=== PATIENT | male | born 1980 | race Hispanic/Latino ===

== ENCOUNTER 2019-09-06 14:17 | Observation (INO) | payer OTHER, SELFPAY ==
[~2019-09-06 14:17] MED LIST: Iopamidol-370 76% 500 ML 1 ML ONE
[2019-09-06] MEDS ORDERED: Ondansetron PF 4 MG/2 ML Vial ONE (15:49)
[2019-09-06] MEDS ORDERED: Morphine 2 MG/ML SYRINGE ONE (15:49)
[2019-09-06 16:06] LABS: Hemoglobin 11.6 g/dL (14.0-18.0); Mean Corpuscular Hemoglobin 29.9 pg (27.0-31.0); Mean Corpuscular Volume 90.1 fL (78.0-98.0); Red Blood Cell (RBC) Count 3.89 mill/uL (4.70-6.10); White Blood Cell (WBC) Count 2.7 thou/uL (4.8-10.8)
[2019-09-06 16:07] LABS: #Lymphocytes 0.2 thou/uL (1.20-3.40); #Monocytes 0.3 thou/uL (0.11-0.59); #Neutrophils 2.2 thou/uL (1.40-6.50); %Basophils 0.5 % (0.0-1.0); %Eosinophils 0.1 % (0.0-10.0); %Lymphocytes 6.5 % (21.0-51.0); %Neutrophils 82.9 % (42.0-75.0); Mean Corpuscular HGB CONC 33.1 g/dL (32.0-36.0); Mean Platelet Volume 7.6 fL (7.4-10.4); Platelet Count 42 thou/uL (130-400); RBC Distribution Width 13.9 % (11.5-14.5)
[2019-09-06 16:20] LABS: ALT (SGPT) 70 U/L (8-55); AST (SGOT) 107 U/L (5-34); Albumin 3.8 g/dL (3.5-5.0); Alkaline Phosphatase 214 U/L (40-110); Anion Gap 10 mmol/L (10-20); BUN (Urea Nitrogen) 12 mg/dL (8.9-20.6); Bilirubin, Total 3.8 mg/dL (0.2-1.2); Calc. Creatinine Clearance 0 mL/min (70-130); Calcium 9.2 mg/dL (7.8-10.44); Carbon Dioxide 30 mmol/L (22-29); Chloride 101 mmol/L (98-107); Estimated GFR-MDRD Greater than 90; Globulin 5.3 g/dL (2.4-3.5); Glucose 133 mg/dL (70-105); Lipase 17 U/L (8-78); Protein, Total 9.1 g/dL (6.0-8.3); Sodium 137 mmol/L (136-145)
--- NOTE | 2019-09-06 16:20 | CT ---
CT BRAIN WITHOUT CONTRAST: HISTORY: Altered mental status FINDINGS: No evidence of acute infarct, hemorrhage, midline shift or abnormal extra-axial fluid collections is seen. The ventricular size is appropriate and the basilar cisterns are patent. The bony calvarium is intact. The visualized paranasal sinuses and mastoid air cells are well aerated. IMPRESSION: No CT evidence of acute intracranial process.
--- NOTE | 2019-09-06 16:33 | CT ---
CT OF THE ABDOMEN AND PELVIS WITH IV CONTRAST INDICATION: Abdominal pain; vomiting with altered mental status COMPARISON: CT the abdomen and pelvis with contrast dated April 24, 2015 FINDINGS: ABDOMEN: Lung bases: There is a small right pleural effusion with right basilar atelectasis. There are small h iatal hernia. Liver: Cirrhotic morphology of the liver. Gallbladder: Cholelithiasis Pancreas: Normal. Adrenal glands: Normal. Spleen: Enlarged measuring 20 cm in its greatest craniocaudad dimension. Kidneys and ureters: Normal. No hydronephrosis. Vasculature: There is prominent splenic varicosities. Lymph nodes:No lymphadenopathy. Free fluid in abdomen:Mild free fluid is seen within the lower pericolonic gutters. There is mild mundo sarca. PELVIS: Small and large bowel: Unopacified large and small bowel are of normal caliber. Appendix:Normal within the right mid abdomen. Bladder: Normal. Rectal and perirectal soft tissues:Normal. Reproductive structures: Normal. Free fluid in pelvis: No free fluid is evident. Lymphadenopathy pelvis: No lymphadenopathy is evident. Osseous structures: No acute osseous abnormality. No destructive osteolytic or osteoblastic lesion i s identified. There is scattered degenerative and osteoarthritic changes. Soft tissues:Mild anasarca IMPRESSION: 1. Findings of cirrhosis with portal hypertension. 2. Small right pleural effusion with right basilar atelectasis. 3. Cholelithiasis 4. Mild free fluid in the pelvis and lower abdomen. Mild anasarca.
[2019-09-06 17:50] LABS: Bilirubin Negative (Negative); Blood, Urine Negative (Negative); Clarity Clear (Clear); Glucose, Urine (Dipstick) Normal (Negative); Leukocyte 75 Leu/uL (Negative); Nitrite 2+ (Negative); Protein, Urine (Dipstick) 10 mg/dL (Neg-Trace); RBC/HPF 0-3 HPF (0-3); Squamous Epithelial 0-3 HPF (0-3); Urobilinogen Normal mg/dL (Less than 2)
[2019-09-06 17:51] LABS: Bacteria/HPF 1+ HPF (None Seen)
[2019-09-06 18:29] VITALS: BMI 39.7
[2019-09-06] MEDS: cefTRIAXone\\ROCEPHIN 1 GM in Sodium Chloride 0.9% 100 ML IVPB SCH (20:01)
--- NOTE | 2019-09-07 01:30 | HP ---
HISTORY OF PRESENT ILLNESS: Mr. Novak is a 39-year-old man who was brought to this facility earlier today because of altered mental status, mental confusion, and according to family patient's problem started about 3 days ago. The patient has been experiencing also some vomiting for the last 3 days. There is no associated fever. He is known to have a history of cirrhosis of the liver, hypertension. PAST SURGICAL HISTORY: Unremarkable. ALLERGIES: HE DOES NOT HAVE ANY KNOWN ALLERGY. SOCIAL HISTORY: He does have a history of EtOH abuse. He denies any cigarette smoking. Denies drug abuse. FAMILY HISTORY: Reviewed and is not contributory. MEDICATIONS: His home medications were reviewed. REVIEW OF SYSTEMS: CONSTITUTIONAL: Admits to generalized weakness. There is no fever. HEENT: No headache. No ocular pain. No sore throat. No rhinorrhea. No earache. No epistaxis. NECK: No neck pain. No neck stiffness. CARDIOVASCULAR: No shortness of breath. No chest pain. PULMONARY: No coughing. GASTROINTESTINAL: Vomiting. There is no abdominal pain. No diarrhea. GENITOURINARY: No dysuria. No hematuria. ENDOCRINOLOGY: No heat or cold intolerance. No polyuria, polydipsia, or polyphagia. MUSCULOSKELETAL: No arthralgia. HEMATOLOGY: No abnormal bleeding. No ecchymosis. LYMPHATIC: No palpable lymphadenopathy. No painful lymphadenopathy. SKIN: No rash. No itching. ALLERGIES: No hay fever. NEUROLOGIC: No seizure. PSYCHIATRIC: No anxiety. PHYSICAL EXAMINATION: GENERAL: At the current time, he is alert. VITAL SIGNS: His latest vital signs show a temperature of 98.2, pulse rate 76, respiratory rate 15, blood pressure 176/87. HEENT: His head is normocephalic and atraumatic. Both his pupils are equal and reactive. Ears and nose, normal. Oral mucosa is moist. Pharyngeal area is clear. NECK: Supple. There is no distention of the jugular vein. No lymphadenopathy felt. Thyroid not palpable. There is no carotid bruit. CHEST: Symmetrical with regular S1 and S2. LUNGS: Clear. ABDOMEN: Soft. We could not appreciate any shifting dullness. We could not appreciate any organomegaly. LIMBS: Show no edema. NEUROLOGIC: He moves all extremities. LABORATORY DATA: His CBC showed WBC of 2.7, hemoglobin of 11.6, hematocrit of 35.1, MCV of 90.1, platelet of 42. Chemistry and lytes showed a sodium of 137, potassium 4, chloride 101, CO2 30, BUN 12, creatinine 0.77, glucose 133, calcium 9.2, total bilirubin 3.8, AST 107, ALT 70, alkaline phosphatase 214, ammonia 35, total protein 9.1, globulin 5.3. Lipase is 17. Urinalysis is suggestive of possible urinary tract infection. ASSESSMENT: This is a 39-year-old man with history of cirrhosis of the liver secondary to EtOH abuse, hypertension who came in with altered mental status, most likely hepatic encephalopathy. He was also noticed to have a low WBC and to have possible urinary tract infection. He will be started on antibiotic. We will start him on lactulose in view of hepatic encephalopathy and we will start him on ceftriaxone for urinary tract infection. His low WBC and low platelets are most likely secondary to liver disease. The patient will be admitted for observation. Further evaluation and management will depend on the course of his hospitalization and his response to therapy. Job ID: [id number]
[2019-09-07] MEDS ORDERED: prednisoLONE 15 MG/5 ML UDCUP PO SCH (09:00)
[2019-09-07] MEDS: Folic Acid 1 MG TAB PO SCH (10:20)
[2019-09-07] MEDS: Cyanocobalamin (Vitamin B-12) 1,000 MCG TAB PO SCH (10:20)
[2019-09-07] MEDS: Spironolactone 25 MG TAB PO SCH ×2 (10:20→17:39)
--- NOTE | 2019-09-07 11:22 | PDOC.HOSPP ---
- Subjective Encounter Date: 09/07/19 Encounter Time: 10:00 Subjective: Feels better, less confused.. - Objective Vital Signs & Weight: Vital Signs (12 hours) Temp Pulse Resp BP BP Pulse Ox 09/07/19 07:21 98.4 F 65 16 138/73 97 09/07/19 05:09 99.3 F 70 12 158/79 H 99 09/06/19 23:38 98.4 F 65 16 176/82 H 98 Weight Weight 221 lb 12.56 oz I&O: 09/06/19 09/07/19 09/08/19 06:59 06:59 06:59 Intake Total 480 Balance 480 Result Diagrams: 09/06/19 15:54 09/06/19 15:54 Hospitalist ROS - Medication Medications: Active Medications Generic Name Dose Route Start Last Admin Trade Name Freq PRN Reason Stop Dose Admin Cyanocobalamin 1,000 mcg 09/07/19 09:00 09/07/19 10:20 Vitamin B-12 PO 1,000 mcg DAILY HOANG Administration Folic Acid 1 mg 09/07/19 09:00 09/07/19 10:20 Folvite PO 1 mg DAILY HOANG Administration Ceftriaxone Sodium 1 gm/ 100 mls @ 200 mls/hr 09/06/19 20:00 09/06/19 20:01 Sodium Chloride IVPB 100 mls 2000 HOANG Administration Lactulose 20 gm 09/06/19 21:00 09/07/19 10:20 Lactulose PO 20 gm BID HOANG Administration Pantoprazole Sodium 40 mg 09/07/19 09:00 09/07/19 10:20 Protonix PO 40 mg DAILY HOANG Administration Spironolactone 50 mg 09/07/19 08:00 09/07/19 10:20 Aldactone PO 50 mg BID-WM HOANG Administration - Exam General Appearance: NAD, awake alert Neck: no JVD Heart: RRR Respiratory: CTAB Gastrointestinal: soft, non-tender (+Shifting dullness..) Hosp A/P (1) Leucopenia Code(s): D72.819 - DECREASED WHITE BLOOD CELL COUNT, UNSPECIFIED Status: Acute (2) HTN (hypertension) Code(s): I10 - ESSENTIAL (PRIMARY) HYPERTENSION Status: Acute (3) Acute alcoholic hepatitis Code(s): K70.10 - ALCOHOLIC HEPATITIS WITHOUT ASCITES Status: Acute (4) Cholelithiases Code(s): K80.20 - CALCULUS OF GALLBLADDER W/O CHOLECYSTITIS W/O OBSTRUCTION Status: Chronic (5) Thrombocytopenia Code(s): D69.6 - THROMBOCYTOPENIA, UNSPECIFIED Status: Acute (6) Thrombocytopenia Code(s): D69.6 - THROMBOCYTOPENIA, UNSPECIFIED Status: Acute - Plan Continue Lactulose.. f/u with GI. Leucopenia & neutropenia due to liver disease..
[2019-09-07] MEDS: cefTRIAXone\\ROCEPHIN 1 GM in Sodium Chloride 0.9% 100 ML IVPB SCH (21:44)
--- NOTE | 2019-09-08 01:20 | CON ---
DATE OF CONSULTATION: 09/07/2019 CHIEF COMPLAINT: Confusion, and abdominal distention. HISTORY OF PRESENT ILLNESS: Mr. Novak is a 39-year-old man, who was admitted through the emergency room last night with confusion. He was started on lactulose and his mental status has improved. He also reported some abdominal distention and sensation of fullness in the abdomen, but this also improved after he was given lactulose today. He had around 3 or 4 soft loose bowel movements today with the lactulose. He has been depressed lately. He has been drinking a liter of vodka daily. He has had no nausea or vomiting. No blood in the stool. He had not been taking lactulose recently, but has been on it in the past. PAST MEDICAL HISTORY: Alcoholic cirrhosis, hepatic encephalopathy, and alcohol abuse. PAST SURGICAL HISTORY: Negative. FAMILY HISTORY: Negative for GI malignancies. SOCIAL HISTORY: He drinks a liter of vodka a day. No drugs or smoking. ALLERGIES: NO KNOWN DRUG ALLERGIES. MEDICATIONS: Prior to admission, apparently has prior prescriptions for; 1. Lactulose. 2. Pantoprazole. 3. Spironolactone. 4. Hydroxyzine. 5. Cholestyramine. 6. Folic acid. but it is not clear that he has been taking any of these recently. Here in the hospital, he is on; 1. Ceftriaxone for suspected UTI. 2. Lactulose 20 g twice daily. 3. Pantoprazole. 4. Prednisolone. 5. Spironolactone. LABORATORY DATA: His creatinine is 0.77, bilirubin 3.8, AST 107, ALT 70, alkaline phosphatase 214, albumin 3.8, lipase 17. White blood cell count 2.7, hemoglobin 11.6, platelets 42,000. PHYSICAL EXAMINATION: VITAL SIGNS: Temperature 98.0, pulse 64, blood pressure 150/80. GENERAL: He is jaundiced. No acute distress. Alert and oriented x3 now. No asterixis on neurological exam. LUNGS: Clear to auscultation bilaterally. HEART: Regular rate and rhythm without murmur. ABDOMEN: Soft, nondistended, nontender at this time. Bowel sounds are present. EXTREMITIES: No lower extremity edema. He has spider angiomas on his chest. He has peripheral muscle wasting and gynecomastia. IMPRESSION: 1. Decompensated cirrhosis of the liver with elevated bilirubin. He has minimal ascites as well. His ongoing alcohol abuse with likely acute alcoholic hepatitis in addition. He has a nodular liver by CT and significant splenomegaly. I do not have a prothrombin time to calculate a discriminant function; however, his bilirubin is only 3.8, and he does not have reliable outpatient followup and clinically I do not think that steroids are indicated at this time. We will discontinue the prednisolone. We will check a prothrombin time as well. 2. Portal hypertension with enlarged spleen and splenic varices by CT scan. He has mild pancytopenia and significant thrombocytopenia associated with the hypersplenism. 3. Hepatic encephalopathy. Clinically improved with lactulose. 4. Slight ascites. He has a minimal amount of ascites by CT. Certainly nothing enough to tap with paracentesis. I will recommend a low-salt diet and it might be reasonable to continue the low-dose spironolactone at this time, but his electrolytes will need to be monitored as an outpatient. RECOMMENDATIONS: 1. Alcohol cessation. 2. Check prothrombin time and alpha fetoprotein. 3. Follow up in the office for routine varices screening and management of his cirrhosis and hepatoma screening. 4. Continue lactulose. This can be titrated to 2 to 3 soft stools per day if he develops diarrhea on the current dose. 5. Low-salt diet. 6. We will stop the prednisolone at this point. 7. I will sign off for now. Please call if GI can be of assistance. I anticipate discharge home tomorrow. Job ID: [id number]
[2019-09-08 05:03] LABS: INR-International Normal Ratio 1.2; Prothrombin Time 14.7 SEC (12.0-14.7)
[2019-09-08 08:09] VITALS: BP 131/75; TEMP 98.6
[2019-09-08] MEDS ORDERED: Spironolactone 25 MG TAB PO SCH (09:00)
[2019-09-08] MEDS: Cyanocobalamin (Vitamin B-12) 1,000 MCG TAB PO SCH (09:48)
[2019-09-08] MEDS: Folic Acid 1 MG TAB PO SCH (09:49)
--- NOTE | 2019-09-08 10:19 | DIS ---
DATE OF ADMISSION: 09/06/2019 DATE OF DISCHARGE: 09/08/2019 ADMITTING DIAGNOSES: Hepatic encephalopathy, cirrhosis of the liver secondary to EtOH abuse, and history of hypertension. DISCHARGE DIAGNOSES: Hepatic encephalopathy, cirrhosis of the liver secondary to EtOH abuse, and history of hypertension. CONSULTS: Dr. Haro. PROCEDURES: Abdomen and pelvis CT and brain CT. COURSE OF HOSPITALIZATION: Uncomplicated. Responded well to management. The patient is clinically stable at this time being discharged home. DISCHARGE MEDICATIONS: For discharge medications, please check discharge medication reconciliation sheet. FOLLOWUP: The patient is to follow up with GI and his primary care physician. He is clinically stable at this time. PHYSICAL EXAMINATION: GENERAL: Today, he is alert, oriented, in no distress. VITAL SIGNS: His latest vital signs show a temperature of 98.6, pulse rate 61, respiratory rate 16, and blood pressure 131/75. HEENT/NECK: His head and neck examination are normal. HEART: He has regular S1 and S2. LUNGS: Clear. ABDOMEN: Soft. EXTREMITIES: He has no edema of the legs. NEUROLOGIC: He moves all the extremities. Job ID: [id number]
== END 2019-09-08 13:34 | disposition home or self-care (01) ==
LOC: ERS 14:17 → 2SW 18:21
PROVIDERS: ADMIT Hospitalist; ATTEND Hospitalist
DX: K70.30 Alcoholic cirrhosis of liver without ascites (principal); K72.90 Hepatic failure, unspecified without coma; I10 Essential (primary) hypertension; Z79.899 Other long term (current) drug therapy
CPT/HCPCS: 36415; 70450; 74177; 80053; 81003; 81015; 82140; 83690; 85025; 85610; 87077; 87086; 87186; 93005; 96361; 96365; 96366; 96374; 96375; G0378; J0696; J2270; J2405; J3490; J7510; Q9967

== ENCOUNTER 2020-02-07 05:05 | Emergency (ER) | payer OTHER | END 2020-02-07 05:20 | disposition home or self-care (01) | LOC: ERS 05:05 | DX: T16.1XXA Foreign body in right ear, initial encounter (principal); K74.60 Unspecified cirrhosis of liver; F17.210 Nicotine dependence, cigarettes, uncomplicated | CPT/HCPCS: 69200 ==

== ENCOUNTER 2020-03-13 00:32 | Emergency (ER) | payer OTHER ==
[2020-03-13] MEDS ORDERED: Morphine 4 MG/ML VIAL ONE (00:50)
[2020-03-13] MEDS ORDERED: Ondansetron PF 4 MG/2 ML Vial ONE (00:50)
[2020-03-13 01:31] LABS: #Basophils 0.1 thou/uL (0.0-0.2); #Eosinphils 0.3 thou/uL (0.0-0.7); #Lymphocytes 0.7 thou/uL (1.20-3.40); #Monocytes 0.6 thou/uL (0.11-0.59); #Neutrophils 3.3 thou/uL (1.40-6.50); %Basophils 1.2 % (0.0-1.0); %Eosinophils 5.4 % (0.0-10.0); %Lymphocytes 13.8 % (21.0-51.0); %Monocytes 12.5 % (0.0-10.0); Hemoglobin 10.9 g/dL (14.0-18.0); Mean Corpuscular HGB CONC 33.3 g/dL (32.0-36.0); Mean Platelet Volume 8.9 fL (7.4-10.4); Platelet Count 73 thou/uL (130-400); RBC Distribution Width 15.4 % (11.5-14.5); Red Blood Cell (RBC) Count 3.63 mill/uL (4.70-6.10); White Blood Cell (WBC) Count 4.9 thou/uL (4.8-10.8)
[2020-03-13 01:37] LABS: ALT (SGPT) 30 U/L (8-55); AST (SGOT) 52 U/L (5-34); Albumin 3.3 g/dL (3.5-5.0); Alkaline Phosphatase 188 U/L (40-110); Anion Gap 11 mmol/L (10-20); BUN (Urea Nitrogen) 15 mg/dL (8.9-20.6); Bilirubin, Total 1.5 mg/dL (0.2-1.2); Calc. Creatinine Clearance 0 mL/min (70-130); Calcium 8.6 mg/dL (7.8-10.44); Carbon Dioxide 18 mmol/L (22-29); Chloride 109 mmol/L (98-107); Estimated GFR-MDRD Greater than 90; Globulin 5.1 g/dL (2.4-3.5); Glucose 106 mg/dL (70-105); Protein, Total 8.4 g/dL (6.0-8.3); Sodium 134 mmol/L (136-145)
[2020-03-13 02:17] LABS: Bilirubin Negative (Negative); Blood, Urine Negative (Negative); Clarity Clear (Clear); Glucose, Urine (Dipstick) Normal (Negative); Leukocyte Negative Leu/uL (Negative); Nitrite Negative (Negative); Protein, Urine (Dipstick) Negative (Neg-Trace); Urobilinogen Normal mg/dL (Less than 2)
--- NOTE | 2020-03-13 08:25 | ULT ---
PRELIMINARY REPORT/[facility]/EMERGENCY AFTER HOURS PROCEDURE: EXAM: US Scrotum. CLINICAL HISTORY: Bilat teste pain/edema COMPARISON: None provided. FINDINGS: RIGHT TESTICLE: No mass. Normal Doppler flow. LEFT TESTICLE: No mass. Normal Doppler flow. EPIDIDYMIDES: Unremarkable. SCROTUM: Small right extratesticular 3 mm hyperechoic focus. Trace hydrocele bilaterally. Prominence of the right pampiniform plexus veins. IMPRESSION: 1. No acute abnormality. No evidence of testicular torsion or acute inflammation. 2. Small right extratesticular hyperechoic lesion, possibly a scrotolith. 3. Trace hydrocele bilaterally. 4. Suggestion of right-sided varicocele. ELECTRONICALLY SIGNED BY: Papo Torres MD Mar 13, 2020 1:54:54 AM CDT FINAL REPORT EMERGENT AFTER HOURS TESTICULAR ULTRASOUND: FINDINGS/IMPRESSION: I agree with the findings and impression given in the preliminary report per [facility] an. No significant intrascrotal/testicular abnormality. POS: BRINA
== END 2020-03-13 03:05 | disposition home or self-care (01) ==
LOC: ERS 00:32
DX: N50.811 Right testicular pain (principal); N50.812 Left testicular pain; M79.10 Myalgia, unspecified site; F17.210 Nicotine dependence, cigarettes, uncomplicated; K74.60 Unspecified cirrhosis of liver; E66.9 Obesity, unspecified; Z79.899 Other long term (current) drug therapy
CPT/HCPCS: 36415; 76870; 80053; 81003; 85025; 93976; 96374; 96375; J2270; J2405

== ENCOUNTER 2020-07-02 05:08 | Emergency (ER) | payer OTHER ==
[2020-07-02] MEDS ORDERED: Ketorolac Tromethamine 30 MG/ML VIAL ONE (05:18)
[2020-07-02] MEDS ORDERED: Morphine 4 MG/ML VIAL ONE (05:18)
[2020-07-02] MEDS ORDERED: Ondansetron PF 4 MG/2 ML Vial ONE (05:32)
[2020-07-02] MEDS ORDERED: Naproxen 500 MG TAB ONE (05:37)
[2020-07-02 06:05] LABS: ALT (SGPT) 35 U/L (8-55); AST (SGOT) 38 U/L (5-34); Albumin 3.2 g/dL (3.5-5.0); Alkaline Phosphatase 158 U/L (40-110); Anion Gap 11 mmol/L (10-20); BUN (Urea Nitrogen) 19 mg/dL (8.9-20.6); Bilirubin, Total 1.6 mg/dL (0.2-1.2); Calc. Creatinine Clearance 0 mL/min (70-130); Calcium 8.2 mg/dL (7.8-10.44); Carbon Dioxide 24 mmol/L (22-29); Chloride 106 mmol/L (98-107); Estimated GFR-MDRD 79; Globulin 4.3 g/dL (2.4-3.5); Glucose 120 mg/dL (70-105); Potassium 4.3 mmol/L (3.5-5.1); Protein, Total 7.5 g/dL (6.0-8.3); Sodium 137 mmol/L (136-145)
[2020-07-02 06:20] LABS: #Eosinphils 0.2 thou/uL (0.0-0.7); #Lymphocytes 0.5 thou/uL (1.20-3.40); #Monocytes 0.5 thou/uL (0.11-0.59); %Eosinophils 5.6 % (0.0-10.0); %Lymphocytes 12.2 % (21.0-51.0); %Monocytes 12.6 % (0.0-10.0); %Neutrophils 69.7 % (42.0-75.0); Anisocytosis SLIGHT = 6-15 cells (100X) (0-5/hpf); Hemoglobin 10.3 g/dL (14.0-18.0); MDiff Complete? YES; Mean Corpuscular Hemoglobin 27.4 pg (27.0-31.0); Mean Corpuscular Volume 85.8 fL (78.0-98.0); Mean Platelet Volume 9.8 fL (7.4-10.4); Platelet Count 80 thou/uL (130-400); Platelet Morphology Comment Appears Decreased; RBC Distribution Width 16.3 % (11.5-14.5); Red Blood Cell (RBC) Count 3.77 mill/uL (4.70-6.10); White Blood Cell (WBC) Count 4.3 thou/uL (4.8-10.8)
--- NOTE | 2020-07-02 08:19 | RAD ---
RIGHT ELBOW 2 VIEWS: HISTORY: Right arm pain. No known injury. FINDINGS: Fairly pronounced arthritic changes of the elbow. There appears to be a small joint effusion. I do not see any signs of fracture. IMPRESSION: Moderate arthritic change of the elbow. POS: MARY
== END 2020-07-02 06:38 | disposition home or self-care (01) ==
LOC: ERS 05:08
DX: M19.021 Primary osteoarthritis, right elbow (principal); E66.9 Obesity, unspecified; F17.290 Nicotine dependence, other tobacco product, uncomplicated; Z79.899 Other long term (current) drug therapy
CPT/HCPCS: 80053; 85025; 85652; 86140; 96374; 96375; J1885; J2270; J2405

== ENCOUNTER 2021-05-10 22:00 | Emergency (ER) | payer OTHER ==
[2021-05-11] MEDS ORDERED: Dexamethasone 10 MG/ML VIAL ONE (01:59)
== END 2021-05-11 02:43 | disposition home or self-care (01) ==
LOC: ERS 22:00
DX: U07.1 COVID-19 (principal); J12.82 Pneumonia due to coronavirus disease 2019
CPT/HCPCS: 71045; 96372; J1100

== ENCOUNTER 2021-06-11 21:56 | Emergency (ER) | payer MEDICAID, OTHER ==
[2021-06-11] MEDS ORDERED: Ondansetron PF 4 MG/2 ML Vial ONE (22:42)
[2021-06-11] MEDS ORDERED: Pantoprazole 40 MG VIAL ONE (22:42)
[2021-06-11 22:51] LABS: Albumin 3.3 g/dL (3.5-5.0)
[2021-06-11 22:52] LABS: Calcium 8.4 mg/dL (7.8-10.44); Chloride 102 mmol/L (98-107); Potassium 3.8 mmol/L (3.5-5.1); Sodium 138 mmol/L (136-145)
[2021-06-11 22:53] LABS: Globulin 3.9 g/dL (2.4-3.5); Glucose 106 mg/dL (70-105); Protein, Total 7.2 g/dL (6.0-8.3)
[2021-06-11 22:55] LABS: Anion Gap 14 mmol/L (10-20); Bilirubin, Total 2.1 mg/dL (0.2-1.2); Carbon Dioxide 26 mmol/L (22-29)
[2021-06-11 22:56] LABS: Alkaline Phosphatase 153 U/L (40-110)
[2021-06-11 22:57] LABS: BUN (Urea Nitrogen) 19 mg/dL (8.9-20.6); Calc. Creatinine Clearance 0 mL/min (70-130)
[2021-06-11 22:58] LABS: AST (SGOT) 33 U/L (5-34)
[2021-06-11 22:59] LABS: ALT (SGPT) 26 U/L (8-55)
[2021-06-11 23:05] LABS: #Eosinphils 0.1 thou/uL (0.0-0.7); #Lymphocytes 0.4 thou/uL (1.20-3.40); #Monocytes 0.4 thou/uL (0.11-0.59); #Neutrophils 2.4 thou/uL (1.40-6.50); %Basophils 0.5 % (0.0-1.0); %Eosinophils 1.8 % (0.0-10.0); %Lymphocytes 12.2 % (21.0-51.0); %Monocytes 13.4 % (0.0-10.0); %Neutrophils 72.1 % (42.0-75.0); Hemoglobin 6.6 g/dL (14.0-18.0); Mean Corpuscular HGB CONC 29.7 g/dL (32.0-36.0); Mean Corpuscular Hemoglobin 23.2 pg (27.0-31.0); Mean Platelet Volume 9.8 fL (7.4-10.4); Platelet Count 110 thou/uL (130-400); RBC Distribution Width 17.4 % (11.5-14.5); Red Blood Cell (RBC) Count 2.86 mill/uL (4.70-6.10); White Blood Cell (WBC) Count 3.3 thou/uL (4.8-10.8)
[2021-06-11 23:06] LABS: Hypochromia SLIGHT = 6-15 cells (100X) (0-5/hpf); MDiff Complete? YES; Microcytosis SLIGHT = 6-15 cells (100X) (0-5/hpf); Platelet Morphology Comment Appears Decreased
[2021-06-11 23:32] LABS: CK (CPK) 89 U/L (30-200); Lipase 20 U/L (8-78)
[2021-06-11 23:35] LABS: INR-International Normal Ratio 1.2; Prothrombin Time 15.3 sec (12.0-14.7)
[2021-06-11 23:36] LABS: PTT 36.5 sec (22.9-36.1)
== END 2021-06-12 03:30 | disposition home or self-care (01) ==
LOC: ERS 21:56
DX: D64.9 Anemia, unspecified (principal)
CPT/HCPCS: 36415; 36430; 80053; 82550; 83690; 83880; 85025; 85610; 85730; 86850; 86900; 86901; 86921; 93005; 96374; 96375; C9113; J2405; P9016

== ENCOUNTER 2021-08-19 19:54 | Emergency (ER) | payer MEDICAID ==
[2021-08-19 21:09] LABS: ALT (SGPT) 35 U/L (8-55); AST (SGOT) 43 U/L (5-34); Albumin 3.2 g/dL (3.5-5.0); Alkaline Phosphatase 164 U/L (40-110); Anion Gap 10 mmol/L (10-20); BUN (Urea Nitrogen) 21 mg/dL (8.9-20.6); Bilirubin, Total 3.4 mg/dL (0.2-1.2); Calc. Creatinine Clearance 0 mL/min (70-130); Calcium 8.2 mg/dL (7.8-10.44); Carbon Dioxide 22 mmol/L (22-29); Chloride 106 mmol/L (98-107); Globulin 3.8 g/dL (2.4-3.5); Glucose 97 mg/dL (70-105); Lipase 23 U/L (8-78); Sodium 134 mmol/L (136-145)
[2021-08-19 21:11] LABS: Acetaminophen Less than 6.0 mcg/mL (10.0-30.0); Alcohol Less than 10 mg/dL (Less than 10); CK (CPK) 82 U/L (30-200); Magnesium 1.7 mg/dL (1.6-2.6); Salicylate Less than 8.0 mg/dL (15.0-30.0)
[2021-08-19] MEDS ORDERED: Morphine 4 MG/ML VIAL ONE (21:22)
[2021-08-19] MEDS ORDERED: Ondansetron PF 4 MG/2 ML Vial ONE ×3 (21:23→21:25)
[2021-08-19] MEDS ORDERED: Ketorolac Tromethamine 30 MG/ML VIAL ONE (21:23)
[2021-08-19] MEDS ORDERED: Azithromycin 500 MG VIAL ONE (21:24)
[2021-08-19 21:35] LABS: #Eosinphils 0.1 thou/uL (0.0-0.7); #Lymphocytes 0.3 thou/uL (1.20-3.40); #Monocytes 0.4 thou/uL (0.11-0.59); #Neutrophils 2.1 thou/uL (1.40-6.50); %Lymphocytes 8.6 % (21.0-51.0); %Monocytes 14.1 % (0.0-10.0); %Neutrophils 73.3 % (42.0-75.0); Hemoglobin 8.2 g/dL (14.0-18.0); Mean Corpuscular HGB CONC 32.4 g/dL (32.0-36.0); Mean Corpuscular Hemoglobin 25.6 pg (27.0-31.0); Mean Platelet Volume 9.9 fL (7.4-10.4); Platelet Count 74 thou/uL (130-400); Platelet Morphology Comment Appears Adequate; White Blood Cell (WBC) Count 2.9 thou/uL (4.8-10.8)
[2021-08-19 23:19] LABS: Amphetamine Detected (NotDetected); Barbiturates Screen Not Detected (NotDetected); Benzodiazepine Screen Not Detected (NotDetected); Cocaine Metabolite Screen Not Detected (NotDetected); Methadone Not Detected (NotDetected); Methamphetamine Detected (NotDetected); Opiate Screen Not Detected (NotDetected); Oxycodone Screen Not Detected (NotDetected); Phencyclidine (PCP) Not Detected (NotDetected); THC/Cannabinoid Screen Not Detected (NotDetected); Tricyclic Screen Not Detected (NotDetected)
[2021-08-19 23:26] LABS: Bilirubin Negative (Negative); Blood, Urine Negative (Negative); Clarity Clear (Clear); Glucose, Urine (Dipstick) Normal (Negative); Ketone, Urine Negative (Negative); Leukocyte Negative Leu/uL (Negative); Nitrite Negative (Negative); Protein, Urine (Dipstick) Negative (Neg-Trace); Specific Gravity, Urine 1.015 (1.002-1.036); Urobilinogen 3 mg/dL (Less than 2)
== END 2021-08-19 23:17 | disposition short-term general hospital (02) ==
LOC: ERS 19:54
DX: K72.90 Hepatic failure, unspecified without coma (principal); F17.210 Nicotine dependence, cigarettes, uncomplicated
CPT/HCPCS: 36415; 70450; 71045; 80053; 80306; 80307; 81003; 82140; 82550; 83690; 83735; 85025; 85730; 93005; 96374; 96375; J0456; J1885; J2270; J2405

== ENCOUNTER 2021-12-17 05:12 | Emergency (ER) | payer OTHER, SELFPAY ==
[2021-12-17 06:04] LABS: Hemoglobin 10.6 g/dL (14.0-18.0); Mean Corpuscular Hemoglobin 27.1 pg (27.0-31.0); Mean Corpuscular Volume 87.6 fL (78.0-98.0); RBC Distribution Width 16.8 % (11.5-14.5); Red Blood Cell (RBC) Count 3.93 mill/uL (4.70-6.10); White Blood Cell (WBC) Count 3.3 thou/uL (4.8-10.8)
[2021-12-17 06:15] LABS: ALT (SGPT) 48 U/L (8-55); AST (SGOT) 56 U/L (5-34); Albumin 3.6 g/dL (3.5-5.0); Alkaline Phosphatase 204 U/L (40-110); Anion Gap 15 mmol/L (10-20); BUN (Urea Nitrogen) 26 mg/dL (8.9-20.6); Calc. Creatinine Clearance 0 mL/min (70-130); Calcium 8.3 mg/dL (7.8-10.44); Carbon Dioxide 18 mmol/L (22-29); Chloride 108 mmol/L (98-107); Globulin 4.4 g/dL (2.4-3.5); Glucose 118 mg/dL (70-105); Potassium 4.1 mmol/L (3.5-5.1); Sodium 137 mmol/L (136-145)
[2021-12-17 06:18] LABS: MDiff Complete? YES; Mean Platelet Volume 8.6 fL (7.4-10.4); Platelet Count 80 thou/uL (130-400)
[2021-12-17 06:19] LABS: Band 9 % (5-11); Eosinophils 1 % (0-10); Hypochromia SLIGHT = 6-15 cells (100X) (0-5/hpf); Lymphocytes 19 % (21-51); Monocytes 13 % (0-10); Neutrophil 58 % (42-75); Platelet Morphology Comment Appears Decreased
== END 2021-12-17 07:25 | disposition home or self-care (01) ==
LOC: ERS 05:12
DX: M79.605 Pain in left leg (principal); M79.604 Pain in right leg; F17.210 Nicotine dependence, cigarettes, uncomplicated; Z87.19 Personal history of other diseases of the digestive system
CPT/HCPCS: 80053; 82140; 83880; 85025; 99283

== ENCOUNTER 2022-06-28 19:00 | Outpatient (CLI) | payer OTHER | END 2022-06-28 19:01 | disposition home or self-care (01) | LOC: SLEEPLAB 19:00 | PROVIDERS: ATTEND Family Medicine | DX: G47.9 Sleep disorder, unspecified (principal); R53.83 Other fatigue; G31.84 Mild cognitive impairment of uncertain or unknown etiology; E66.9 Obesity, unspecified; K21.9 Gastro-esophageal reflux disease without esophagitis; R06.83 Snoring; G47.00 Insomnia, unspecified; I10 Essential (primary) hypertension; G47.10 Hypersomnia, unspecified; I49.3 Ventricular premature depolarization; G47.63 Sleep related bruxism; Z68.41 Body mass index [BMI] 40.0-44.9, adult | CPT/HCPCS: 95810 ==

== ENCOUNTER 2023-03-16 15:42 | Emergency (ER) | payer MEDICAID, OTHER ==
[2023-03-16] MEDS ORDERED: Iopamidol-370 76% 500 ML MDV (1 ML CHARGE) ONE (15:44)
[2023-03-16 17:29] LABS: #Eosinphils 0.2 thou/uL (0.0-0.7); #Monocytes 0.4 thou/uL (0.11-0.59); #Neutrophils 3.8 thou/uL (1.40-6.50); %Basophils 0.4 % (0.0-1.0); %Eosinophils 3.7 % (0.0-10.0); %Lymphocytes 9.7 % (21.0-51.0); %Monocytes 8.3 % (0.0-10.0); %Neutrophils 77.7 % (42.0-75.0); Hemoglobin 11.1 g/dL (14.0-18.0); Mean Corpuscular HGB CONC 31.4 g/dL (32.0-36.0); Mean Corpuscular Hemoglobin 29.2 pg (27.0-31.0); Mean Corpuscular Volume 92.9 fl (78.0-98.0); Mean Platelet Volume 10.6 fL (7.4-10.4); White Blood Cell (WBC) Count 4.8 10x3/uL (4.8-10.8)
[2023-03-16 17:38] LABS: Platelet Count 101 10x3/uL (130-400)
[2023-03-16 17:48] LABS: ALT (SGPT) 45 U/L (8-55); AST (SGOT) 38 U/L (5-34); Albumin 3.5 g/dL (3.5-5.0); Alkaline Phosphatase 214 U/L (40-110); Anion Gap 7 mmol/L (10-20); BUN (Urea Nitrogen) 19 mg/dL (8.9-20.6); Bilirubin, Total 1.2 mg/dL (0.2-1.2); Calc. Creatinine Clearance 0 mL/min (70-130); Calcium 8.8 mg/dL (7.8-10.44); Carbon Dioxide 21 mmol/L (22-29); Chloride 107 mmol/L (98-107); Estimated GFR 99; Globulin 4.6 g/dL (2.4-3.5); Glucose 184 mg/dL (70-105); Potassium 4.3 mmol/L (3.5-5.1); Protein, Total 8.1 g/dL (6.0-8.3); Sodium 131 mmol/L (136-145)
[2023-03-16 21:00] LABS: Bacteria/HPF None Seen HPF (None Seen); Bilirubin Negative (Negative); Blood, Urine Negative (Negative); CAUTI Indications for Culture Dysuria,urgency,freq; Clarity Clear (Clear); Glucose, Urine (Dipstick) Normal (Negative); Ketone, Urine Negative (Negative); Leukocyte Negative Leu/uL (Negative); Nitrite Negative (Negative); Protein, Urine (Dipstick) Negative (Neg-Trace); RBC/HPF 0-3 HPF (0-3); Specific Gravity, Urine 1.021 (1.002-1.036); Squamous Epithelial 0-3 HPF (0-3); WBC/HPF 0-3 HPF (0-3); pH, Urine 5.5 (5.0-9.0)
[2023-03-16 21:04] LABS: Urine Culture Reflex No No
[2023-03-16] MEDS ORDERED: Famotidine/PF 20 mg/2ml Vial ONE (22:33)
[2023-03-16] MEDS ORDERED: Ketorolac Tromethamine 30 MG/ML VIAL ONE (22:33)
[2023-03-16] MEDS ORDERED: Pantoprazole 40 MG VIAL ONE (22:33)
== END 2023-03-16 22:48 | disposition home or self-care (01) ==
LOC: ERS 15:42
DX: K80.20 Calculus of gallbladder without cholecystitis without obstruction (principal); K74.60 Unspecified cirrhosis of liver; D64.9 Anemia, unspecified; R16.1 Splenomegaly, not elsewhere classified; F17.200 Nicotine dependence, unspecified, uncomplicated
CPT/HCPCS: 36415; 74177; 80053; 81001; 83690; 84484; 85025; 86850; 86900; 86901; 93005; 96374; 96375; C9113; J1885; Q9967; S0028

== ENCOUNTER 2023-05-09 11:07 | Inpatient (IN) | payer OTHER ==
[2023-05-09 12:04] LABS: #Eosinphils 0.2 thou/uL (0.0-0.7); #Monocytes 0.4 thou/uL (0.11-0.59); #Neutrophils 3.3 thou/uL (1.40-6.50); %Basophils 0.5 % (0.0-1.0); %Eosinophils 4.8 % (0.0-10.0); %Lymphocytes 8.5 % (21.0-51.0); %Monocytes 10.1 % (0.0-10.0); %Neutrophils 75.9 % (42.0-75.0); Hemoglobin 8.8 g/dL (14.0-18.0); Mean Corpuscular HGB CONC 31.4 g/dL (32.0-36.0); Mean Corpuscular Hemoglobin 28.6 pg (27.0-31.0); Mean Corpuscular Volume 90.9 fl (78.0-98.0); Mean Platelet Volume 10.5 fL (7.4-10.4); RBC Distribution Width 14.7 % (11.5-14.5); Red Blood Cell (RBC) Count 3.08 mill/uL (4.70-6.10); White Blood Cell (WBC) Count 4.3 10x3/uL (4.8-10.8)
[2023-05-09] MEDS ORDERED: Morphine 4 MG/ML VIAL ONE (12:05)
[2023-05-09] MEDS ORDERED: Ondansetron PF 4 MG/2 ML Vial ONE (12:05)
[2023-05-09] MEDS ORDERED: Acetaminophen 500 MG TAB ONE (12:05)
[2023-05-09 12:08] LABS: Platelet Count 89 10x3/uL (130-400)
[2023-05-09 12:30] LABS: ALT (SGPT) 28 U/L (8-55); AST (SGOT) 29 U/L (5-34); Albumin 3.3 g/dL (3.5-5.0); Alkaline Phosphatase 175 U/L (40-110); Anion Gap 11 mmol/L (10-20); BUN (Urea Nitrogen) 14 mg/dL (8.9-20.6); Bilirubin, Total 1.8 mg/dL (0.2-1.2); Calc. Creatinine Clearance 0 mL/min (70-130); Calcium 8.4 mg/dL (7.8-10.44); Carbon Dioxide 22 mmol/L (22-29); Chloride 106 mmol/L (98-107); Estimated GFR 108; Globulin 4.2 g/dL (2.4-3.5); Glucose 137 mg/dL (70-105); Potassium 3.7 mmol/L (3.5-5.1); Protein, Total 7.5 g/dL (6.0-8.3); Sodium 135 mmol/L (136-145)
[2023-05-09] MEDS ORDERED: Ketorolac Tromethamine 30 MG/ML VIAL ONE (13:23)
[2023-05-09] MEDS ORDERED: hydrALAZINE 20 MG/ML VIAL SLOW IVP PRN (14:38)
[2023-05-09 17:09] VITALS: BMI 47.4
[2023-05-09 17:25] LABS: RBC Count-Automated (BF) 9653 /cu.mm
[2023-05-09 17:26] LABS: BF Color Yellow; Body Fluid Source Synovial Fluid; Clarity Cloudy/Turbid (Clear); Tube # EDTA; WBC/Nucleated-Auto (BF) Greater than 51000 /cu.mm
[2023-05-09 17:38] LABS: Synovial Fluid, Uric Acid 7.9 mg/dL (Not Available)
[2023-05-09 18:11] LABS: BF Segmented Neutrophils 90 %; Cell Count Non Hematic 10 %
[2023-05-09] MEDS: oxyCODONE 5 MG TAB PO PRN (21:20)
[2023-05-10 09:26] LABS: #Eosinphils 0.2 thou/uL (0.0-0.7); #Monocytes 0.4 thou/uL (0.11-0.59); #Neutrophils 2.6 thou/uL (1.40-6.50); %Basophils 0.3 % (0.0-1.0); %Eosinophils 5.6 % (0.0-10.0); %Lymphocytes 11.1 % (21.0-51.0); %Neutrophils 72.7 % (42.0-75.0); Hematocrit 27.6 % (42.0-52.0); Hemoglobin 8.6 g/dL (14.0-18.0); Mean Corpuscular HGB CONC 31.2 g/dL (32.0-36.0); Mean Corpuscular Hemoglobin 28.4 pg (27.0-31.0); Mean Corpuscular Volume 91.1 fl (78.0-98.0); Mean Platelet Volume 10.7 fL (7.4-10.4); RBC Distribution Width 14.8 % (11.5-14.5); Red Blood Cell (RBC) Count 3.03 mill/uL (4.70-6.10); White Blood Cell (WBC) Count 3.6 10x3/uL (4.8-10.8)
[2023-05-10 09:34] LABS: Platelet Count 76 10x3/uL (130-400)
[2023-05-10 09:52] LABS: Anion Gap 11 mmol/L (10-20); BUN (Urea Nitrogen) 13 mg/dL (8.9-20.6); Calc. Creatinine Clearance 209 mL/min (70-130); Calcium 8.5 mg/dL (7.8-10.44); Carbon Dioxide 23 mmol/L (22-29); Chloride 105 mmol/L (98-107); Estimated GFR 112; Glucose 103 mg/dL (70-105); Potassium 4.2 mmol/L (3.5-5.1); Sodium 135 mmol/L (136-145)
[2023-05-10] MEDS ORDERED: Vancomycin HCl 1.75 GM in Sodium Chloride 0.9% 500 ML IVPB SCH (10:28)
[2023-05-10] MEDS: VANCOMYCIN 1.75 GM/500 ML BAG 1.75 GM in Premix Bag 1 BAG IVPB SCH ×2 (13:34→21:25)
[2023-05-10] MEDS: oxyCODONE 5 MG TAB PO PRN (13:58)
[2023-05-10] MEDS ORDERED: Indomethacin 25 mg Capsule PO SCH (15:00)
[2023-05-10] MEDS ORDERED: predniSONE 20 MG TAB PO SCH (18:00)
[2023-05-11 05:22] LABS: #Eosinphils 0.1 thou/uL (0.0-0.7); #Monocytes 0.4 thou/uL (0.11-0.59); %Basophils 0.3 % (0.0-1.0); %Eosinophils 4.5 % (0.0-10.0); %Lymphocytes 12.5 % (21.0-51.0); %Monocytes 14.9 % (0.0-10.0); %Neutrophils 67.5 % (42.0-75.0); Hematocrit 28.3 % (42.0-52.0); Hemoglobin 8.8 g/dL (14.0-18.0); Mean Corpuscular HGB CONC 31.1 g/dL (32.0-36.0); Mean Corpuscular Hemoglobin 28.7 pg (27.0-31.0); Mean Corpuscular Volume 92.2 fl (78.0-98.0); Mean Platelet Volume 10.5 fL (7.4-10.4); RBC Distribution Width 14.6 % (11.5-14.5); Red Blood Cell (RBC) Count 3.07 mill/uL (4.70-6.10); White Blood Cell (WBC) Count 2.9 10x3/uL (4.8-10.8)
[2023-05-11 05:27] LABS: Platelet Count 88 10x3/uL (130-400)
[2023-05-11 05:48] LABS: Vancomycin, Trough 22.3 ug/mL
[2023-05-11] MEDS ORDERED: predniSONE 20 MG TAB PO SCH (08:00)
[2023-05-11] MEDS ORDERED: Vancomycin 1.5 GRAM/300 ML BAG 1.5 GM in Premix Bag 1 BAG IVPB SCH (08:00)
[2023-05-11] MEDS: oxyCODONE 5 MG TAB PO PRN (09:11)
[2023-05-11 11:57] VITALS: BP 123/71; TEMP 98.5
== END 2023-05-11 15:59 | DRG 554 ==
LOC: EEVIPCON 11:07 → ERS 11:07 → T4-B 14:35 → EEVIPCON 14:35 → OBSVTOIN 05-10 12:58
PROVIDERS: ADMIT Internal Medicine; ATTEND Internal Medicine Critical Care Medicine
PROC: 0XJ Anatomical Regions, Upper Extremities, Inspection (ICD-10-PCS; principal; 2023-05-09)
PROC: 0R9M3ZX Drainage of Left Elbow Joint, Percutaneous Approach, Diagnostic (ICD-10-PCS; 2023-05-09)
DX: M10.9 Gout, unspecified (principal); K76.6 Portal hypertension; D61.818 Other pancytopenia; I10 Essential (primary) hypertension; G89.29 Other chronic pain; K21.9 Gastro-esophageal reflux disease without esophagitis; D69.6 Thrombocytopenia, unspecified; K70.9 Alcoholic liver disease, unspecified; D64.9 Anemia, unspecified; K70.30 Alcoholic cirrhosis of liver without ascites; Z79.899 Other long term (current) drug therapy
CPT/HCPCS: 20605; 36415; 77002; 80048; 80053; 80202; 82140; 82945; 84157; 84560; 85025; 85060; 85652; 86140; 87040; 87070; 87205; 89051; 89060; J1885; J2270; J2405; J3370; J7512

== ENCOUNTER 2023-05-31 05:05 | Emergency (ER) | payer OTHER ==
[2023-05-31 06:17] LABS: #Eosinphils 0.2 thou/uL (0.0-0.7); #Monocytes 0.5 thou/uL (0.11-0.59); #Neutrophils 2.1 thou/uL (1.40-6.50); %Basophils 0.6 % (0.0-1.0); %Eosinophils 5.8 % (0.0-10.0); %Lymphocytes 11.9 % (21.0-51.0); %Monocytes 14.8 % (0.0-10.0); %Neutrophils 66.3 % (42.0-75.0); Hematocrit 28.4 % (42.0-52.0); Hemoglobin 8.8 g/dL (14.0-18.0); Mean Corpuscular Hemoglobin 28.6 pg (27.0-31.0); Mean Corpuscular Volume 92.2 fl (78.0-98.0); Mean Platelet Volume 10.5 fL (7.4-10.4); RBC Distribution Width 15.4 % (11.5-14.5); Red Blood Cell (RBC) Count 3.08 mill/uL (4.70-6.10); White Blood Cell (WBC) Count 3.1 10x3/uL (4.8-10.8)
[2023-05-31 06:18] LABS: Platelet Count 80 10x3/uL (130-400)
[2023-05-31 06:38] LABS: ALT (SGPT) 28 U/L (8-55); AST (SGOT) 35 U/L (5-34); Albumin 3.4 g/dL (3.5-5.0); Alkaline Phosphatase 144 U/L (40-110); Anion Gap 10 mmol/L (10-20); BUN (Urea Nitrogen) 16 mg/dL (8.9-20.6); Bilirubin, Total 1.6 mg/dL (0.2-1.2); Calc. Creatinine Clearance 0 mL/min (70-130); Calcium 8.6 mg/dL (7.8-10.44); Carbon Dioxide 21 mmol/L (22-29); Chloride 109 mmol/L (98-107); Estimated GFR 112; Globulin 3.6 g/dL (2.4-3.5); Glucose 131 mg/dL (70-105); Potassium 4.1 mmol/L (3.5-5.1); Sodium 136 mmol/L (136-145)
[2023-05-31 06:48] LABS: CellaVision Operator ID lab.abc; Platelet Adequacy Comment Platelets Decreased; RBC Morphology Within Normal Limits; Smudge Cells 6.1 %
[2023-05-31] MEDS ORDERED: predniSONE 20 MG TAB ONE ×2 (08:21)
== END 2023-05-31 08:10 | disposition home or self-care (01) ==
LOC: ERS 05:05 → EEVIPCON 05:05 → ERS 08:10
DX: M10.9 Gout, unspecified (principal); I10 Essential (primary) hypertension; K21.9 Gastro-esophageal reflux disease without esophagitis; F17.200 Nicotine dependence, unspecified, uncomplicated
CPT/HCPCS: 36415; 80053; 85025; 85652; 86140; J7512

== ENCOUNTER 2023-06-15 02:09 | Inpatient (IN) | payer OTHER ==
[2023-06-15 02:44] LABS: #Eosinphils 0.1 thou/uL (0.0-0.7); %Basophils 0.2 % (0.0-1.0); %Eosinophils 0.9 % (0.0-10.0); %Lymphocytes 7.4 % (21.0-51.0); %Monocytes 15.4 % (0.0-10.0); %Neutrophils 75.6 % (42.0-75.0); Hematocrit 27.2 % (42.0-52.0); Hemoglobin 8.6 g/dL (14.0-18.0); Mean Corpuscular HGB CONC 31.6 g/dL (32.0-36.0); Mean Corpuscular Hemoglobin 28.4 pg (27.0-31.0); Mean Corpuscular Volume 89.8 fl (78.0-98.0); Mean Platelet Volume 10.5 fL (7.4-10.4); RBC Distribution Width 15.9 % (11.5-14.5); Red Blood Cell (RBC) Count 3.03 mill/uL (4.70-6.10); White Blood Cell (WBC) Count 6.6 10x3/uL (4.8-10.8)
[2023-06-15 02:45] LABS: Platelet Count 81 10x3/uL (130-400)
[2023-06-15 02:54] LABS: Bacteria/HPF 3+ HPF (None Seen); Bilirubin Negative (Negative); Blood, Urine 1+ (Negative); CAUTI Indications for Culture Pelvic or flank pain; Clarity Turbid (Clear); Glucose, Urine (Dipstick) Normal (Negative); Ketone, Urine Negative (Negative); Leukocyte 500 Leu/uL (Negative); Nitrite Negative (Negative); Protein, Urine (Dipstick) 20 mg/dL (Neg-Trace); Specific Gravity, Urine 1.017 (1.002-1.036); Squamous Epithelial 0-3 HPF (0-3); WBC/HPF Greater than 50 HPF (0-3); pH, Urine 5.5 (5.0-9.0)
[2023-06-15 02:56] LABS: INR-International Normal Ratio 1.2
[2023-06-15 02:57] LABS: PTT 39.6 sec (22.9-36.1)
[2023-06-15 02:58] LABS: Urine Culture Reflex Yes Yes
[2023-06-15 03:07] LABS: CellaVision Operator ID lab.abc; Platelet Adequacy Comment Platelets Decreased; Polychromasia SLIGHT = 2-3 cells HPF (0-2); RBC Morphology Within Normal Limits; Smudge Cells 14.9 %
[2023-06-15 03:14] LABS: ALT (SGPT) 48 U/L (8-55); AST (SGOT) 48 U/L (5-34); Albumin 3.1 g/dL (3.5-5.0); Alkaline Phosphatase 165 U/L (40-110); Anion Gap 11 mmol/L (10-20); BUN (Urea Nitrogen) 21 mg/dL (8.9-20.6); Bilirubin, Total 4.2 mg/dL (0.2-1.2); Calc. Creatinine Clearance 0 mL/min (70-130); Calcium 8.4 mg/dL (7.8-10.44); Carbon Dioxide 21 mmol/L (22-29); Chloride 104 mmol/L (98-107); Estimated GFR 108; Globulin 4.1 g/dL (2.4-3.5); Glucose 110 mg/dL (70-105); Lipase 34 U/L (8-78); Potassium 4.6 mmol/L (3.5-5.1); Protein, Total 7.2 g/dL (6.0-8.3); Sodium 131 mmol/L (136-145)
[2023-06-15] MEDS ORDERED: Morphine 4 MG/ML VIAL ONE (04:08)
[2023-06-15] MEDS ORDERED: Piperacillin/Tazobactam 4.5 GM VIAL ONE (04:09)
[2023-06-15] MEDS ORDERED: Ketorolac Tromethamine 30 MG/ML VIAL ONE (04:25)
[2023-06-15] MEDS ORDERED: Ondansetron PF 4 MG/2 ML Vial ONE (04:27)
[2023-06-15 05:22] LABS: SARS-CoV-2 NAA Rapid Test Not Detected (NotDetected)
[2023-06-15] MEDS ORDERED: Acetaminophen 650 MG Suppository PR PRN (06:14)
[2023-06-15] MEDS ORDERED: Ondansetron PF 4 MG/2 ML Vial IVP PRN (06:14)
[2023-06-15] MEDS ORDERED: Ondansetron ODT 4 MG TAB PO PRN (06:14)
[2023-06-15] MEDS: Sodium Chloride 0.9% 1,000 ML IV SCH ×3 (06:30→23:29)
[2023-06-15] MEDS ORDERED: VANCOMYCIN 2 GRAM/500 ML BAG 2 GM in Premix Bag 1 BAG IVPB SCH (06:30)
[2023-06-15] MEDS ORDERED: Ipratropium/Albuterol 3 ML NEB NEB PRN (06:46)
[2023-06-15 07:42] LABS: Iron 27 ug/dL (65-175); Iron Binding Capacity, Total 246 mcg/dL (261-462)
[2023-06-15] MEDS ORDERED: Piperacillin/Tazobactam 3.375 GM VIAL ONE (08:41)
[2023-06-15] MEDS ORDERED: Pantoprazole 40 MG VIAL ONE (08:41)
[2023-06-15] MEDS: Pantoprazole 40 MG VIAL IVP SCH (08:47)
[2023-06-15] MEDS: Piperacillin/Tazobactam 3.375 GM in Sodium Chloride 0.9% 100 ML IVPB SCH ×3 (08:48→23:52)
[2023-06-15] MEDS: Ipratropium/Albuterol 3 ML NEB NEB SCH ×5 (10:48→22:37)
[2023-06-15] MEDS: Acetaminophen 325 MG TAB PO PRN ×2 (10:54→18:06)
[2023-06-15 11:33] VITALS: BMI 49.7
[2023-06-15] MEDS: VANCOMYCIN 2 GRAM/500 ML BAG 2 GM in Premix Bag 1 BAG IVPB SCH ×2 (13:50→21:13)
[2023-06-15] MEDS ORDERED: Iopamidol-370 76% 500 ML MDV (1 ML CHARGE) ONE (14:45)
[2023-06-16] MEDS: Ipratropium/Albuterol 3 ML NEB NEB SCH ×4 (02:35→19:57)
[2023-06-16 05:41] LABS: #Monocytes 0.7 thou/uL (0.11-0.59); #Neutrophils 2.6 thou/uL (1.40-6.50); %Basophils 0.3 % (0.0-1.0); %Eosinophils 0.8 % (0.0-10.0); %Lymphocytes 9.2 % (21.0-51.0); %Monocytes 17.9 % (0.0-10.0); Hematocrit 25.3 % (42.0-52.0); Mean Corpuscular HGB CONC 31.6 g/dL (32.0-36.0); Mean Corpuscular Hemoglobin 28.5 pg (27.0-31.0); Mean Platelet Volume 10.5 fL (7.4-10.4); Platelet Count 73 10x3/uL (130-400); RBC Distribution Width 15.9 % (11.5-14.5); Red Blood Cell (RBC) Count 2.81 mill/uL (4.70-6.10); White Blood Cell (WBC) Count 3.7 10x3/uL (4.8-10.8)
[2023-06-16 05:58] LABS: Anion Gap 10 mmol/L (10-20); BUN (Urea Nitrogen) 24 mg/dL (8.9-20.6); Calc. Creatinine Clearance 174 mL/min (70-130); Carbon Dioxide 18 mmol/L (22-29); Chloride 107 mmol/L (98-107); Estimated GFR 91; Glucose 116 mg/dL (70-105); Potassium 4.5 mmol/L (3.5-5.1); Sodium 130 mmol/L (136-145)
[2023-06-16 06:06] LABS: Vancomycin, Trough 32.3 ug/mL
[2023-06-16] MEDS: VANCOMYCIN 2 GRAM/500 ML BAG 2 GM in Premix Bag 1 BAG IVPB SCH (06:10)
[2023-06-16 07:46] LABS: ALT (SGPT) 48 U/L (8-55); AST (SGOT) 47 U/L (5-34); Alkaline Phosphatase 146 U/L (40-110); Bilirubin, Direct 3.5 mg/dL (0.1-0.3); Bilirubin, Total 4.4 mg/dL (0.2-1.2); Protein, Total 6.7 g/dL (6.0-8.3)
[2023-06-16] MEDS: Piperacillin/Tazobactam 3.375 GM in Sodium Chloride 0.9% 100 ML IVPB SCH ×2 (08:04→15:28)
[2023-06-16] MEDS: Pantoprazole 40 MG VIAL IVP SCH (08:04)
[2023-06-16] MEDS: Sodium Chloride 0.9% 1,000 ML IV SCH (08:04)
[2023-06-16 08:07] LABS: INR-International Normal Ratio 1.3; Prothrombin Time 16.4 sec (12.0-14.7)
[2023-06-16 17:29] LABS: Vancomycin, Random 12.5 ug/mL (See Comment)
[2023-06-16] MEDS ORDERED: Vancomycin 1 GM VIAL IVPB SCH (18:00)
[2023-06-17] MEDS: Piperacillin/Tazobactam 3.375 GM in Sodium Chloride 0.9% 100 ML IVPB SCH ×4 (01:15→23:46)
[2023-06-17 08:07] LABS: #Eosinphils 0.1 thou/uL (0.0-0.7); #Monocytes 0.4 thou/uL (0.11-0.59); #Neutrophils 1.9 thou/uL (1.40-6.50); %Basophils 0.4 % (0.0-1.0); %Eosinophils 4.2 % (0.0-10.0); %Lymphocytes 12.3 % (21.0-51.0); %Monocytes 15.1 % (0.0-10.0); %Neutrophils 66.9 % (42.0-75.0); Hematocrit 26.4 % (42.0-52.0); Hemoglobin 8.2 g/dL (14.0-18.0); Mean Corpuscular HGB CONC 31.1 g/dL (32.0-36.0); Mean Corpuscular Hemoglobin 28.3 pg (27.0-31.0); Mean Platelet Volume 10.9 fL (7.4-10.4); RBC Distribution Width 15.9 % (11.5-14.5); White Blood Cell (WBC) Count 2.9 10x3/uL (4.8-10.8)
[2023-06-17] MEDS: Ipratropium/Albuterol 3 ML NEB NEB SCH ×3 (08:25→18:57)
[2023-06-17 08:28] LABS: ALT (SGPT) 43 U/L (8-55); AST (SGOT) 39 U/L (5-34); Alkaline Phosphatase 154 U/L (40-110); Anion Gap 10 mmol/L (10-20); BUN (Urea Nitrogen) 19 mg/dL (8.9-20.6); Bilirubin, Total 2.7 mg/dL (0.2-1.2); Calc. Creatinine Clearance 195 mL/min (70-130); Calcium 8.6 mg/dL (7.8-10.44); Carbon Dioxide 19 mmol/L (22-29); Chloride 108 mmol/L (98-107); Estimated GFR 105; Globulin 4.2 g/dL (2.4-3.5); Glucose 93 mg/dL (70-105); Potassium 4.9 mmol/L (3.5-5.1); Protein, Total 7.2 g/dL (6.0-8.3); Sodium 132 mmol/L (136-145)
[2023-06-17 08:44] LABS: Platelet Count 82 10x3/uL (130-400)
[2023-06-17] MEDS: Pantoprazole 40 MG VIAL IVP SCH (08:45)
[2023-06-17 08:46] LABS: INR-International Normal Ratio 1.1; Prothrombin Time 15.1 sec (12.0-14.7)
[2023-06-17] MEDS ORDERED: SPIRONOLACTONE 50 MG PO SCH (09:00)
[2023-06-17] MEDS ORDERED: Spironolactone 25 MG TAB PO SCH (09:00)
[2023-06-17] MEDS ORDERED: Furosemide 40 MG TAB PO SCH (09:00)
[2023-06-17] MEDS: Allopurinol 300 MG TAB PO SCH (10:37)
[2023-06-17] MEDS ORDERED: Cyclobenzaprine 10 MG TAB PO PRN (13:48)
[2023-06-17] MEDS ORDERED: Cyclobenzaprine 10 MG TAB PO SCH (14:00)
[2023-06-17] MEDS ORDERED: Diphenoxylate HCl/Atropine Tablet PO SCH (14:00)
[2023-06-18] MEDS: Ipratropium/Albuterol 3 ML NEB NEB SCH (06:48)
[2023-06-18] MEDS ORDERED: Furosemide 40 MG TAB PO SCH (07:30)
[2023-06-18 07:55] VITALS: BP 109/66; TEMP 99
[2023-06-18] MEDS ORDERED: Spironolactone 25 MG TAB PO SCH (08:00)
[2023-06-18 08:21] LABS: ALT (SGPT) 37 U/L (8-55); AST (SGOT) 35 U/L (5-34); Albumin 2.9 g/dL (3.5-5.0); Alkaline Phosphatase 153 U/L (40-110); Anion Gap 12 mmol/L (10-20); BUN (Urea Nitrogen) 26 mg/dL (8.9-20.6); Bilirubin, Total 2.5 mg/dL (0.2-1.2); Calc. Creatinine Clearance 183 mL/min (70-130); Calcium 8.3 mg/dL (7.8-10.44); Carbon Dioxide 20 mmol/L (22-29); Chloride 108 mmol/L (98-107); Estimated GFR 97; Glucose 99 mg/dL (70-105); Magnesium 1.7 mg/dL (1.6-2.6); Potassium 4.6 mmol/L (3.5-5.1); Protein, Total 6.9 g/dL (6.0-8.3); Sodium 135 mmol/L (136-145)
[2023-06-18] MEDS: Pantoprazole 40 MG VIAL IVP SCH (08:41)
[2023-06-18] MEDS: Piperacillin/Tazobactam 3.375 GM in Sodium Chloride 0.9% 100 ML IVPB SCH (08:42)
[2023-06-18] MEDS: Allopurinol 300 MG TAB PO SCH (08:42)
== END 2023-06-18 12:59 | DRG 872 ==
LOC: EEVIPCON 02:09 → ERS 02:09 → ERHOLD 05:27 → T4-A 10:36
PROVIDERS: ADMIT Student in an Organized Health Care Education/Training Program; ATTEND Family Medicine
DX: A41.9 Sepsis, unspecified organism (principal); N39.0 Urinary tract infection, site not specified; Z68.42 Body mass index [BMI] 45.0-49.9, adult; E87.1 Hypo-osmolality and hyponatremia; Z79.899 Other long term (current) drug therapy; M10.9 Gout, unspecified; I10 Essential (primary) hypertension; K21.9 Gastro-esophageal reflux disease without esophagitis; F17.210 Nicotine dependence, cigarettes, uncomplicated; D64.9 Anemia, unspecified; D69.6 Thrombocytopenia, unspecified; K76.82 Hepatic encephalopathy; K70.30 Alcoholic cirrhosis of liver without ascites; E66.01 Morbid (severe) obesity due to excess calories; Z20.822 Contact with and (suspected) exposure to COVID-19
CPT/HCPCS: 36415; 71045; 74177; 76705; 80048; 80053; 80076; 80202; 81001; 82728; 83540; 83550; 83605; 83690; 83735; 83880; 85025; 85610; 85730; 87040; 87077; 87086; 87186; 93306; 94640; 96361; 96365; 96375; C9113; J1885; J2270; J2405; J2543; J3370; J3490; J7050; J7620; Q9967

== ENCOUNTER 2023-07-06 22:10 | Inpatient (IN) | payer OTHER ==
[~2023-07-06 22:10] MED LIST changes: -Iopamidol-370 76% 500 ML 1 ML ONE; +Iopamidol-370 76% 500 ML MDV (1 ML CHARGE) ONE
[2023-07-06 23:30] LABS: #Eosinphils 0.1 thou/uL (0.0-0.7); #Monocytes 0.7 thou/uL (0.11-0.59); #Neutrophils 5.1 thou/uL (1.40-6.50); %Basophils 0.3 % (0.0-1.0); %Eosinophils 1.5 % (0.0-10.0); %Lymphocytes 3.9 % (21.0-51.0); %Monocytes 11.1 % (0.0-10.0); %Neutrophils 82.9 % (42.0-75.0); Hemoglobin 9.4 g/dL (14.0-18.0); Mean Corpuscular HGB CONC 32.4 g/dL (32.0-36.0); Mean Corpuscular Hemoglobin 28.7 pg (27.0-31.0); Mean Corpuscular Volume 88.4 fl (78.0-98.0); Mean Platelet Volume 10.6 fL (7.4-10.4); RBC Distribution Width 15.5 % (11.5-14.5); Red Blood Cell (RBC) Count 3.28 mill/uL (4.70-6.10); White Blood Cell (WBC) Count 6.2 10x3/uL (4.8-10.8)
[2023-07-06 23:31] LABS: Platelet Count 80 10x3/uL (130-400)
[2023-07-06 23:34] LABS: Bacteria/HPF 4+ HPF (None Seen); Bilirubin Negative (Negative); Blood, Urine 1+ (Negative); CAUTI Indications for Culture Pelvic or flank pain; Clarity Turbid (Clear); Glucose, Urine (Dipstick) Normal (Negative); Ketone, Urine Negative (Negative); Leukocyte 500 Leu/uL (Negative); Nitrite Negative (Negative); Protein, Urine (Dipstick) 70 mg/dL (Neg-Trace); Specific Gravity, Urine 1.013 (1.002-1.036); Squamous Epithelial 0-3 HPF (0-3); WBC/HPF Greater than 50 HPF (0-3)
[2023-07-06 23:36] LABS: Urine Culture Reflex Yes Yes
[2023-07-06 23:50] LABS: ALT (SGPT) 21 U/L (8-55); AST (SGOT) 32 U/L (5-34); Albumin 3.4 g/dL (3.5-5.0); Alkaline Phosphatase 132 U/L (40-110); Anion Gap 14 mmol/L (10-20); BUN (Urea Nitrogen) 18 mg/dL (8.9-20.6); Bilirubin, Total 2.1 mg/dL (0.2-1.2); Calc. Creatinine Clearance 0 mL/min (70-130); Calcium 8.8 mg/dL (7.8-10.44); Carbon Dioxide 23 mmol/L (22-29); Chloride 103 mmol/L (98-107); Estimated GFR 97; Globulin 4.5 g/dL (2.4-3.5); Glucose 123 mg/dL (70-105); Potassium 3.9 mmol/L (3.5-5.1); Protein, Total 7.9 g/dL (6.0-8.3); Sodium 136 mmol/L (136-145)
[2023-07-06 23:52] LABS: CellaVision Operator ID lab.abc; Platelet Adequacy Comment Platelets Decreased; RBC Morphology Within Normal Limits
[2023-07-07] MEDS ORDERED: Morphine 4 MG/ML VIAL ONE (00:11)
[2023-07-07] MEDS ORDERED: cefTRIAXone (ROCEPHIN) 1 GM VIAL ONE (00:11)
[2023-07-07 00:17] LABS: Troponin I Less than 0.010 ng/mL (< 0.028)
[2023-07-07] MEDS ORDERED: Ketorolac Tromethamine 30 MG/ML VIAL ONE (03:18)
[2023-07-07] MEDS ORDERED: LORazepam 2 MG/ML SYR.(CARPUJECT) ONE (03:23)
[2023-07-07] MEDS ORDERED: Acetaminophen 325 MG TAB PO PRN (03:45)
[2023-07-07] MEDS ORDERED: Ondansetron PF 4 MG/2 ML Vial IVP PRN (03:45)
[2023-07-07] MEDS ORDERED: Ondansetron ODT 4 MG TAB SL PRN (03:45)
[2023-07-07] MEDS ORDERED: Calcium Carbonate 500 MG ChewTAB PO PRN (03:49)
[2023-07-07] MEDS ORDERED: Senokot S 8.6-50 MG TAB PO PRN (03:49)
[2023-07-07] MEDS ORDERED: Dicyclomine 20 MG TAB PO PRN (03:51)
[2023-07-07 05:16] VITALS: BMI 51.5
[2023-07-07] MEDS: Sodium Chloride 0.9% 1,000 ML IV SCH ×2 (05:43→13:36)
[2023-07-07] MEDS: Furosemide 40 MG TAB PO SCH (06:40)
[2023-07-07] MEDS: Spironolactone 25 MG TAB PO SCH (09:38)
[2023-07-07] MEDS: Allopurinol 300 MG TAB PO SCH (09:38)
[2023-07-07] MEDS ORDERED: Magnesium Citrate 300 ML BOT PO SCH (10:45)
[2023-07-07] MEDS ORDERED: Hyoscyamine SL 0.125 MG TAB PO PRN (10:46)
[2023-07-07] MEDS: cefTRIAXone\\ROCEPHIN 1 GM in Sodium Chloride 0.9% 100 ML IVPB SCH (20:52)
[2023-07-07] MEDS: MULTIVIT/IRON SULF/FOLIC ACID 1 EACH TAB PO SCH (20:52)
[2023-07-08 05:35] LABS: #Eosinphils 0.1 thou/uL (0.0-0.7); #Monocytes 0.5 thou/uL (0.11-0.59); #Neutrophils 2.7 thou/uL (1.40-6.50); %Basophils 0.3 % (0.0-1.0); %Eosinophils 2.8 % (0.0-10.0); %Lymphocytes 7.5 % (21.0-51.0); %Monocytes 14.4 % (0.0-10.0); %Neutrophils 74.7 % (42.0-75.0); Hematocrit 24.4 % (42.0-52.0); Hemoglobin 7.8 g/dL (14.0-18.0); Mean Corpuscular Hemoglobin 28.8 pg (27.0-31.0); Mean Platelet Volume 11.5 fL (7.4-10.4); Red Blood Cell (RBC) Count 2.71 mill/uL (4.70-6.10); White Blood Cell (WBC) Count 3.6 10x3/uL (4.8-10.8)
[2023-07-08 06:06] LABS: Platelet Count 54 10x3/uL (130-400)
[2023-07-08 06:11] LABS: ALT (SGPT) 22 U/L (8-55); AST (SGOT) 35 U/L (5-34); Alkaline Phosphatase 110 U/L (40-110); Anion Gap 11 mmol/L (10-20); BUN (Urea Nitrogen) 24 mg/dL (8.9-20.6); Calc. Creatinine Clearance 142 mL/min (70-130); Calcium 8.4 mg/dL (7.8-10.44); Carbon Dioxide 23 mmol/L (22-29); Chloride 103 mmol/L (98-107); Estimated GFR 74; Glucose 136 mg/dL (70-105); Potassium 3.5 mmol/L (3.5-5.1); Sodium 133 mmol/L (136-145)
[2023-07-08] MEDS: Furosemide 40 MG TAB PO SCH (08:22)
[2023-07-08] MEDS: Spironolactone 25 MG TAB PO SCH (08:22)
[2023-07-08] MEDS: Allopurinol 300 MG TAB PO SCH (08:22)
[2023-07-08] MEDS: Acetaminophen 325 MG TAB PO PRN ×2 (08:56→22:25)
[2023-07-08] MEDS: Nicotine 21 MG PATCH TD SCH ×2 (18:14→18:16)
[2023-07-08] MEDS: cefTRIAXone\\ROCEPHIN 1 GM in Sodium Chloride 0.9% 100 ML IVPB SCH (22:23)
[2023-07-08] MEDS: MULTIVIT/IRON SULF/FOLIC ACID 1 EACH TAB PO SCH (22:24)
[2023-07-09] MEDS ORDERED: Ketorolac Tromethamine 30 MG/ML VIAL IVP SCH (00:45)
[2023-07-09] MEDS ORDERED: Acetaminophen 325 MG TAB PO SCH (02:00)
[2023-07-09 06:19] LABS: Hematocrit 25.9 % (42.0-52.0); Hemoglobin 8.3 g/dL (14.0-18.0); Mean Corpuscular Hemoglobin 28.7 pg (27.0-31.0); Mean Corpuscular Volume 89.6 fl (78.0-98.0); Mean Platelet Volume 10.7 fL (7.4-10.4); RBC Distribution Width 15.6 % (11.5-14.5); Red Blood Cell (RBC) Count 2.89 mill/uL (4.70-6.10); White Blood Cell (WBC) Count 1.8 10x3/uL (4.8-10.8)
[2023-07-09 06:25] LABS: Delete Auto Diff?? YES; Manual Diff?? YES; Platelet Count 49 10x3/uL (130-400)
[2023-07-09] MEDS: Furosemide 40 MG TAB PO SCH (06:35)
[2023-07-09 06:38] LABS: Anion Gap 12 mmol/L (10-20); BUN (Urea Nitrogen) 25 mg/dL (8.9-20.6); Calc. Creatinine Clearance 173 mL/min (70-130); Calcium 8.6 mg/dL (7.8-10.44); Carbon Dioxide 23 mmol/L (22-29); Chloride 105 mmol/L (98-107); Estimated GFR 93; Glucose 97 mg/dL (70-105); Potassium 3.7 mmol/L (3.5-5.1); Sodium 136 mmol/L (136-145)
[2023-07-09 06:54] LABS: Band 16 % (5-11); CellaVision Operator ID lab.abc; Eosinophils 8 % (0-10); Lymphocytes 6 % (21-51); Monocytes 15 % (0-10); Neutrophil 54 % (42-75); Platelet Adequacy Comment Platelets Decreased; RBC Morphology Within Normal Limits; Total Cell Count 100
[2023-07-09] MEDS: Phenazopyridine HCl 100 MG TAB PO SCH ×3 (10:08→17:39)
[2023-07-09] MEDS: Allopurinol 300 MG TAB PO SCH (10:09)
[2023-07-09] MEDS: Spironolactone 25 MG TAB PO SCH (10:09)
[2023-07-09] MEDS: Nicotine 21 MG PATCH TD SCH (17:40)
[2023-07-09] MEDS: cefTRIAXone\\ROCEPHIN 1 GM in Sodium Chloride 0.9% 100 ML IVPB SCH (20:19)
[2023-07-09] MEDS: MULTIVIT/IRON SULF/FOLIC ACID 1 EACH TAB PO SCH (20:19)
[2023-07-10 05:53] LABS: #Eosinphils 0.2 thou/uL (0.0-0.7); #Monocytes 0.5 thou/uL (0.11-0.59); #Neutrophils 1.5 thou/uL (1.40-6.50); %Basophils 0.4 % (0.0-1.0); %Eosinophils 7.1 % (0.0-10.0); %Lymphocytes 15.8 % (21.0-51.0); %Monocytes 18.6 % (0.0-10.0); %Neutrophils 57.7 % (42.0-75.0); Hematocrit 27.2 % (42.0-52.0); Hemoglobin 8.7 g/dL (14.0-18.0); Mean Corpuscular Hemoglobin 28.4 pg (27.0-31.0); Mean Corpuscular Volume 88.9 fl (78.0-98.0); Mean Platelet Volume 11.2 fL (7.4-10.4); RBC Distribution Width 15.6 % (11.5-14.5); Red Blood Cell (RBC) Count 3.06 mill/uL (4.70-6.10); White Blood Cell (WBC) Count 2.5 10x3/uL (4.8-10.8)
[2023-07-10 06:16] LABS: Platelet Count 69 10x3/uL (130-400)
[2023-07-10 06:24] LABS: Anion Gap 12 mmol/L (10-20); BUN (Urea Nitrogen) 21 mg/dL (8.9-20.6); Calc. Creatinine Clearance 194 mL/min (70-130); Calcium 8.6 mg/dL (7.8-10.44); Carbon Dioxide 19 mmol/L (22-29); Chloride 104 mmol/L (98-107); Estimated GFR 107; Glucose 117 mg/dL (70-105); Potassium 3.7 mmol/L (3.5-5.1); Sodium 131 mmol/L (136-145)
[2023-07-10] MEDS: Furosemide 40 MG TAB PO SCH (08:13)
[2023-07-10] MEDS: Spironolactone 25 MG TAB PO SCH (08:13)
[2023-07-10] MEDS: Allopurinol 300 MG TAB PO SCH (08:13)
[2023-07-10] MEDS: Phenazopyridine HCl 100 MG TAB PO SCH (08:13)
[2023-07-10 08:14] VITALS: BP 123/70; TEMP 98.1
[2023-07-10] MEDS: Nicotine 21 MG PATCH TD SCH (08:17)
== END 2023-07-10 15:10 | DRG 872 ==
LOC: EEVIPCON 22:10 → ERS 22:10 → T4-B 07-07 03:12
PROVIDERS: ADMIT Student in an Organized Health Care Education/Training Program; ATTEND Internal Medicine
DX: A41.9 Sepsis, unspecified organism (principal); N39.0 Urinary tract infection, site not specified; E87.1 Hypo-osmolality and hyponatremia; Z79.899 Other long term (current) drug therapy; M10.9 Gout, unspecified; I10 Essential (primary) hypertension; K21.9 Gastro-esophageal reflux disease without esophagitis; F17.210 Nicotine dependence, cigarettes, uncomplicated; Z98.890 Other specified postprocedural states; K74.60 Unspecified cirrhosis of liver; D69.6 Thrombocytopenia, unspecified; K29.70 Gastritis, unspecified, without bleeding; Z71.6 Tobacco abuse counseling; E88.09 Other disorders of plasma-protein metabolism, not elsewhere classified
CPT/HCPCS: 36415; 36416; 74177; 80048; 80053; 81001; 83605; 83690; 84484; 85025; 87040; 87077; 87086; 87186; 93005; 94760; J0696; J1885; J2060; J2270; J3490; J7050; Q9967

== ENCOUNTER 2023-07-24 23:24 | Emergency (ER) | payer OTHER ==
[2023-07-25] MEDS ORDERED: Ondansetron PF 4 MG/2 ML Vial ONE (01:34)
[2023-07-25] MEDS ORDERED: Morphine 4 MG/ML VIAL ONE ×2 (01:34→05:39)
[2023-07-25 02:34] LABS: Bacteria/HPF None Seen HPF (None Seen); Bilirubin Negative (Negative); Blood, Urine Negative (Negative); CAUTI Indications for Culture Pelvic or flank pain; Clarity Clear (Clear); Glucose, Urine (Dipstick) Normal (Negative); Ketone, Urine Negative (Negative); Leukocyte Negative Leu/uL (Negative); Nitrite Negative (Negative); Protein, Urine (Dipstick) Negative (Neg-Trace); RBC/HPF 0-3 HPF (0-3); Specific Gravity, Urine 1.017 (1.002-1.036); Squamous Epithelial 0-3 HPF (0-3); Urobilinogen Normal mg/dL (Less than 2); WBC/HPF 0-3 HPF (0-3)
[2023-07-25 02:41] LABS: Urine Culture Reflex No No
[2023-07-25 04:21] LABS: INR-International Normal Ratio 1.2; Prothrombin Time 16.1 sec (12.0-14.7)
[2023-07-25 04:22] LABS: PTT 69.6 sec (22.9-36.1)
[2023-07-25 04:33] LABS: Magnesium 1.3 mg/dL (1.6-2.6); Uric Acid 6.3 mg/dL (3.5-7.2)
[2023-07-25 04:34] LABS: ALT (SGPT) 26 U/L (8-55); AST (SGOT) 38 U/L (5-34); Albumin 3.4 g/dL (3.5-5.0); Alkaline Phosphatase 141 U/L (40-110); Anion Gap 12 mmol/L (10-20); BUN (Urea Nitrogen) 13 mg/dL (8.9-20.6); Bilirubin, Total 1.9 mg/dL (0.2-1.2); Calc. Creatinine Clearance 0 mL/min (70-130); Calcium 8.9 mg/dL (7.8-10.44); Carbon Dioxide 22 mmol/L (22-29); Chloride 106 mmol/L (98-107); Estimated GFR 114; Globulin 4.1 g/dL (2.4-3.5); Glucose 83 mg/dL (70-105); Lipase 19 U/L (8-78); Potassium 4.3 mmol/L (3.5-5.1); Protein, Total 7.5 g/dL (6.0-8.3); Sodium 136 mmol/L (136-145)
[2023-07-25 04:39] LABS: Troponin I Less than 0.010 ng/mL (< 0.028)
[2023-07-25] MEDS ORDERED: Magnesium 2 GM/50 ML BAG (IN WATER) ONE (05:39)
[2023-07-25] MEDS ORDERED: Iopamidol 370 76% 100 ML VIAL ONE (13:20)
== END 2023-07-25 06:44 ==
LOC: ERS 23:24 → EEVIPCON 23:24 → ERS 07-25 06:44
DX: E83.42 Hypomagnesemia (principal); K70.30 Alcoholic cirrhosis of liver without ascites; M25.521 Pain in right elbow; I10 Essential (primary) hypertension; F17.200 Nicotine dependence, unspecified, uncomplicated
CPT/HCPCS: 36415; 71045; 74177; 80053; 81001; 83605; 83690; 83735; 83880; 84484; 84550; 85610; 85730; 93005; 96365; 96375; 96376; J2270; J2405; J3475; Q9967

== ENCOUNTER 2023-08-03 07:24 | Emergency (ER) | payer OTHER ==
[2023-08-03] MEDS ORDERED: Furosemide 40 MG/4 ML VIAL ONE (08:05)
[2023-08-03] MEDS ORDERED: Ketorolac Tromethamine 30 MG/ML VIAL ONE (08:05)
[2023-08-03 08:26] LABS: #Eosinphils 0.3 thou/uL (0.0-0.7); #Monocytes 0.4 thou/uL (0.11-0.59); #Neutrophils 2.1 thou/uL (1.40-6.50); %Basophils 0.3 % (0.0-1.0); %Eosinophils 10.2 % (0.0-10.0); %Lymphocytes 11.8 % (21.0-51.0); %Monocytes 11.8 % (0.0-10.0); %Neutrophils 65.6 % (42.0-75.0); Hematocrit 28.7 % (42.0-52.0); Hemoglobin 8.9 g/dL (14.0-18.0); Mean Corpuscular Hemoglobin 28.8 pg (27.0-31.0); Mean Corpuscular Volume 92.9 fl (78.0-98.0); Mean Platelet Volume 10.8 fL (7.4-10.4); Red Blood Cell (RBC) Count 3.09 mill/uL (4.70-6.10); White Blood Cell (WBC) Count 3.1 10x3/uL (4.8-10.8)
[2023-08-03 08:48] LABS: ALT (SGPT) 27 U/L (8-55); AST (SGOT) 37 U/L (5-34); Albumin 3.5 g/dL (3.5-5.0); Alkaline Phosphatase 132 U/L (40-110); Anion Gap 10 mmol/L (10-20); BUN (Urea Nitrogen) 17 mg/dL (8.9-20.6); Bilirubin, Total 1.3 mg/dL (0.2-1.2); Calc. Creatinine Clearance 0 mL/min (70-130); Calcium 8.7 mg/dL (7.8-10.44); Carbon Dioxide 26 mmol/L (22-29); Chloride 107 mmol/L (98-107); Estimated GFR 111; Globulin 3.9 g/dL (2.4-3.5); Glucose 130 mg/dL (70-105); Magnesium 1.5 mg/dL (1.6-2.6); Potassium 3.7 mmol/L (3.5-5.1); Protein, Total 7.4 g/dL (6.0-8.3); Sodium 139 mmol/L (136-145)
[2023-08-03 08:50] LABS: Platelet Count 74 10x3/uL (130-400)
[2023-08-03 09:17] LABS: Bacteria/HPF None Seen HPF (None Seen); Bilirubin Negative (Negative); Blood, Urine Negative (Negative); CAUTI Indications for Culture Pelvic or flank pain; Clarity Clear (Clear); Glucose, Urine (Dipstick) Normal (Negative); Ketone, Urine Negative (Negative); Leukocyte Negative Leu/uL (Negative); Nitrite Negative (Negative); Protein, Urine (Dipstick) Negative (Neg-Trace); RBC/HPF None Seen HPF (0-3); Specific Gravity, Urine 1.012 (1.002-1.036); Squamous Epithelial 0-3 HPF (0-3); Urobilinogen Normal mg/dL (Less than 2); WBC/HPF 0-3 HPF (0-3); pH, Urine 6.5 (5.0-9.0)
[2023-08-03 09:20] LABS: Urine Culture Reflex No No
== END 2023-08-03 17:01 | disposition home or self-care (01) ==
LOC: ERS 07:24
DX: M10.9 Gout, unspecified (principal); R60.9 Edema, unspecified; I10 Essential (primary) hypertension; K21.9 Gastro-esophageal reflux disease without esophagitis; F17.200 Nicotine dependence, unspecified, uncomplicated; Z79.899 Other long term (current) drug therapy
CPT/HCPCS: 36415; 80053; 81001; 83735; 83880; 84550; 85025; 96372; 99283; J1885; J1940

== ENCOUNTER 2023-10-26 08:38 | Outpatient (CLI) | payer OTHER | END 2023-10-26 08:39 | disposition home or self-care (01) | LOC: BICRAD 08:38 | PROVIDERS: ATTEND Family Medicine | DX: M25.561 Pain in right knee (principal); M25.562 Pain in left knee; M25.572 Pain in left ankle and joints of left foot; M25.571 Pain in right ankle and joints of right foot; M77.32 Calcaneal spur, left foot; M17.0 Bilateral primary osteoarthritis of knee ==

== ENCOUNTER 2024-04-01 13:56 | Inpatient (IN) | payer OTHER ==
[2024-04-01] MEDS ORDERED: cefTRIAXone (ROCEPHIN) 1 GM VIAL ONE (14:43)
[2024-04-01] MEDS ORDERED: Pantoprazole 40 MG VIAL ONE (14:43)
[2024-04-01] MEDS ORDERED: Sodium Chloride 0.9% 100 ML ONE (14:44)
[2024-04-01 15:13] LABS: #Basophils Less than 0.03 10x3/uL (0.0-0.2); %Basophils 0.3 % (0.0-1.0); %Eosinophils 0.4 % (0.0-10.0); %Lymphocytes 3.2 % (21.0-51.0); %Monocytes 12.2 % (0.0-10.0); %Neutrophils 83.5 % (42.0-75.0); Hematocrit 25.3 % (42.0-52.0); Hemoglobin 8.4 g/dL (14.0-18.0); Mean Corpuscular HGB CONC 33.2 g/dL (32.0-36.0); Mean Corpuscular Hemoglobin 27.4 pg (27.0-31.0); Mean Corpuscular Volume 82.4 fL (78.0-98.0); Platelet Count 103 10x3/uL (130-400); RBC Distribution Width 17.2 % (11.5-14.5); Red Blood Cell (RBC) Count 3.07 mill/uL (4.70-6.10)
[2024-04-01 15:16] LABS: ALT (SGPT) 103 U/L (8-55); AST (SGOT) 110 U/L (5-34); Albumin 2.3 g/dL (3.5-5.0); Alkaline Phosphatase 175 U/L (40-110); Anion Gap 15 mmol/L (10-20); BUN (Urea Nitrogen) 62 mg/dL (8.9-20.6); Bilirubin, Total 4.4 mg/dL (0.2-1.2); Calc. Creatinine Clearance 0 mL/min (70-130); Calcium 7.8 mg/dL (7.8-10.44); Carbon Dioxide 16 mmol/L (22-29); Chloride 94 mmol/L (98-107); Estimated GFR 38; Globulin 4.2 g/dL (2.4-3.5); Glucose 122 mg/dL (70-105); Lipase 41 U/L (8-78); Potassium 4.2 mmol/L (3.5-5.1); Protein, Total 6.5 g/dL (6.0-8.3); Sodium 121 mmol/L (136-145)
[2024-04-01 15:31] LABS: Hypochromia SLIGHT = 6-15 cells HPF (0-5); Platelet Adequacy Comment Platelets Decreased; Polychromasia SLIGHT = 2-3 cells HPF (0-2)
[2024-04-01 15:36] LABS: INR-International Normal Ratio 1.4; PTT 38.3 sec (22.9-36.1); Prothrombin Time 16.8 sec (12.0-14.7)
[2024-04-01] MEDS ORDERED: Ondansetron ODT 4 MG TAB PO PRN (16:37)
[2024-04-01 16:40] LABS: Bacteria/HPF None Seen HPF (None Seen); Bilirubin Negative (Negative); Blood, Urine Trace (Negative); Clarity Clear (Clear); Glucose, Urine (Dipstick) Normal (Negative); Ketone, Urine Negative (Negative); Leukocyte 250 Leu/uL (Negative); Nitrite Negative (Negative); Protein, Urine (Dipstick) 10 mg/dL (Neg-Trace); RBC/HPF 0-3 HPF (0-3); Specific Gravity, Urine 1.031 (1.002-1.036); Squamous Epithelial 0-3 HPF (0-3); Urobilinogen Normal mg/dL (Less than 2); WBC/HPF 21-50 HPF (0-3); pH, Urine 5.5 (5.0-9.0)
[2024-04-01 18:19] VITALS: BMI 46.5
[2024-04-01] MEDS: Acetaminophen 325 MG TAB PO SCH (18:45)
[2024-04-01] MEDS: Sodium Chloride 0.9% 1,000 ML IV SCH (18:45)
[2024-04-01] MEDS: Octreotide Acetate 50 MCG/ML AMP SLOW IVP SCH (18:52)
[2024-04-01] MEDS ORDERED: Zinc Oxide 20% Oint 30 GM TUBE TOP PRN (20:26)
[2024-04-01] MEDS: Loperamide HCl 2 MG CAP PO PRN (21:12)
[2024-04-01] MEDS: Pantoprazole 40 MG VIAL IVP SCH (21:13)
[2024-04-01 23:34] LABS: Creatinine, Urine 66.21 mg/dL (63-166); Sodium, Urine Less than 20 mmol/L (Not Available)
[2024-04-02 04:42] LABS: #Basophils Less than 0.03 10x3/uL (0.0-0.2); %Basophils 0.4 % (0.0-1.0); %Eosinophils 0.6 % (0.0-10.0); %Lymphocytes 5.8 % (21.0-51.0); %Monocytes 14.5 % (0.0-10.0); %Neutrophils 78.3 % (42.0-75.0); Hematocrit 28.6 % (42.0-52.0); Hemoglobin 9.3 g/dL (14.0-18.0); Mean Corpuscular HGB CONC 32.5 g/dL (32.0-36.0); Mean Corpuscular Hemoglobin 27.2 pg (27.0-31.0); Mean Corpuscular Volume 83.6 fL (78.0-98.0); Platelet Count 90 10x3/uL (130-400); RBC Distribution Width 17.3 % (11.5-14.5); Red Blood Cell (RBC) Count 3.42 mill/uL (4.70-6.10)
[2024-04-02 04:57] LABS: ALT (SGPT) 93 U/L (8-55); AST (SGOT) 86 U/L (5-34); Albumin 2.3 g/dL (3.5-5.0); Alkaline Phosphatase 180 U/L (40-110); Anion Gap 13 mmol/L (10-20); BUN (Urea Nitrogen) 63 mg/dL (8.9-20.6); Bilirubin, Total 4.2 mg/dL (0.2-1.2); Calc. Creatinine Clearance 94 mL/min (70-130); Calcium 8.1 mg/dL (7.8-10.44); Carbon Dioxide 15 mmol/L (22-29); Chloride 100 mmol/L (98-107); Estimated GFR 52; Globulin 4.4 g/dL (2.4-3.5); Glucose 118 mg/dL (70-105); Potassium 4.6 mmol/L (3.5-5.1); Protein, Total 6.7 g/dL (6.0-8.3); Sodium 123 mmol/L (136-145)
[2024-04-02] MEDS: cefTRIAXone\\ROCEPHIN 1 GM in Sodium Chloride 0.9% 100 ML IVPB SCH (06:33)
[2024-04-02] MEDS ORDERED: Lidocaine 2% PF 5 ML VIAL ONE (10:05)
[2024-04-02] MEDS ORDERED: PROPOFOL 20 ML ONE (10:05)
[2024-04-02] MEDS ORDERED: PROPOFOL 60 ML ONE (10:30)
[2024-04-02] MEDS: Sodium Chloride 0.9% 1,000 ML IV SCH (11:29)
[2024-04-02] MEDS ORDERED: Mag-Al 1200 mg/1200 mg/30 ML UDCUP PO PRN (12:30)
[2024-04-02] MEDS ORDERED: Lactulose 10 GM/15 ML Oral Solution PO PRN (13:00)
[2024-04-02 13:44] LABS: Troponin I Less than 0.010 ng/mL (< 0.028)
[2024-04-02] MEDS: HYDROcodone/Acetaminophen 5/325 mg Tablet PO PRN (13:54)
[2024-04-02] MEDS: Mag-Al 1200 mg/1200 mg/30 ML UDCUP PO SCH (13:55)
[2024-04-02] MEDS: Morphine 2 MG/ML VIAL SLOW IVP SCH (15:56)
[2024-04-02 19:00] LABS: Troponin I Less than 0.010 ng/mL (< 0.028)
[2024-04-02] MEDS: Allopurinol 100 MG TAB PO SCH (20:49)
[2024-04-03] MEDS: cefTRIAXone\\ROCEPHIN 2 GM in Sodium Chloride 0.9% 100 ML IVPB SCH (05:31)
[2024-04-03 06:22] LABS: #Basophils Less than 0.03 10x3/uL (0.0-0.2); %Basophils 0.3 % (0.0-1.0); %Eosinophils 1.4 % (0.0-10.0); %Lymphocytes 7.2 % (21.0-51.0); %Monocytes 19.4 % (0.0-10.0); %Neutrophils 71.1 % (42.0-75.0); Hematocrit 25.6 % (42.0-52.0); Hemoglobin 8.2 g/dL (14.0-18.0); Mean Corpuscular Hemoglobin 27.1 pg (27.0-31.0); Mean Corpuscular Volume 84.5 fL (78.0-98.0); Mean Platelet Volume 10.9 fL (7.4-10.4); Platelet Count 84 10x3/uL (130-400); RBC Distribution Width 17.5 % (11.5-14.5); Red Blood Cell (RBC) Count 3.03 mill/uL (4.70-6.10)
[2024-04-03 06:41] LABS: ALT (SGPT) 65 U/L (8-55); AST (SGOT) 46 U/L (5-34); Albumin 2.1 g/dL (3.5-5.0); Alkaline Phosphatase 141 U/L (40-110); Anion Gap 11 mmol/L (10-20); BUN (Urea Nitrogen) 40 mg/dL (8.9-20.6); Bilirubin, Total 2.8 mg/dL (0.2-1.2); Calc. Creatinine Clearance 141 mL/min (70-130); Calcium 7.8 mg/dL (7.8-10.44); Carbon Dioxide 18 mmol/L (22-29); Chloride 104 mmol/L (98-107); Estimated GFR 84; Globulin 4.2 g/dL (2.4-3.5); Glucose 179 mg/dL (70-105); Potassium 4.5 mmol/L (3.5-5.1); Protein, Total 6.3 g/dL (6.0-8.3); Sodium 128 mmol/L (136-145)
[2024-04-03] MEDS: MULTIVIT/IRON SULF/FOLIC ACID 1 EACH TAB PO SCH (08:24)
[2024-04-03 14:37] LABS: Hematocrit 27.4 % (42.0-52.0); Hemoglobin 8.6 g/dL (14.0-18.0)
[2024-04-03] MEDS: Octreotide Acetate 1,250 MCG in Sodium Chloride 0.9% 250 ML 250 ML IVPB SCH (16:53)
[2024-04-04 09:58] LABS: ALT (SGPT) 57 U/L (8-55); AST (SGOT) 47 U/L (5-34); Albumin 2.1 g/dL (3.5-5.0); Alkaline Phosphatase 222 U/L (40-110); Anion Gap 10 mmol/L (10-20); BUN (Urea Nitrogen) 27 mg/dL (8.9-20.6); Bilirubin, Total 2.5 mg/dL (0.2-1.2); Calc. Creatinine Clearance 179 mL/min (70-130); Calcium 7.9 mg/dL (7.8-10.44); Carbon Dioxide 20 mmol/L (22-29); Chloride 110 mmol/L (98-107); Estimated GFR 108; Globulin 4.4 g/dL (2.4-3.5); Glucose 123 mg/dL (70-105); Potassium 5.5 mmol/L (3.5-5.1); Protein, Total 6.5 g/dL (6.0-8.3); Sodium 134 mmol/L (136-145)
[2024-04-04 10:21] LABS: Hematocrit 27.9 % (42.0-52.0); Hemoglobin 8.8 g/dL (14.0-18.0); Mean Corpuscular HGB CONC 31.5 g/dL (32.0-36.0); Mean Corpuscular Hemoglobin 26.6 pg (27.0-31.0); Mean Corpuscular Volume 84.3 fL (78.0-98.0); Mean Platelet Volume 10.2 fL (7.4-10.4); Platelet Count 70 10x3/uL (130-400); RBC Distribution Width 17.6 % (11.5-14.5); Red Blood Cell (RBC) Count 3.31 mill/uL (4.70-6.10)
[2024-04-04 11:13] LABS: Anisocytosis SLIGHT = 6-15 cells HPF (0-5); Band 6 % (5-11); Burr Cells SLIGHT = 2-5 cells HPF (0-1); Eosinophils 3 % (0-10); Hypochromia SLIGHT = 6-15 cells HPF (0-5); Large Platelets 7.7 % (0-5); Lymphocytes 13 % (21-51); Macrocytosis SLIGHT = 6-15 cells HPF (0-5); Monocytes 16 % (0-10); Neutrophil 54 % (42-75); Platelet Adequacy Comment Platelets Decreased; Polychromasia SLIGHT = 2-3 cells HPF (0-2); Smudge Cells 9.6 %
[2024-04-04] MEDS: Propranolol 10 MG TAB PO SCH (20:14)
[2024-04-05 05:17] LABS: Hematocrit 27.4 % (42.0-52.0); Hemoglobin 8.4 g/dL (14.0-18.0); Mean Corpuscular HGB CONC 30.7 g/dL (32.0-36.0); Mean Corpuscular Hemoglobin 26.5 pg (27.0-31.0); Mean Corpuscular Volume 86.4 fL (78.0-98.0); Mean Platelet Volume 10.8 fL (7.4-10.4); Platelet Count 82 10x3/uL (130-400); RBC Distribution Width 17.7 % (11.5-14.5); Red Blood Cell (RBC) Count 3.17 mill/uL (4.70-6.10)
[2024-04-05 05:29] LABS: ALT (SGPT) 55 U/L (8-55); AST (SGOT) 54 U/L (5-34); Albumin 2.2 g/dL (3.5-5.0); Alkaline Phosphatase 259 U/L (40-110); Anion Gap 13 mmol/L (10-20); BUN (Urea Nitrogen) 24 mg/dL (8.9-20.6); Bilirubin, Total 2.6 mg/dL (0.2-1.2); Calc. Creatinine Clearance 189 mL/min (70-130); Calcium 8.1 mg/dL (7.8-10.44); Carbon Dioxide 14 mmol/L (22-29); Chloride 112 mmol/L (98-107); Estimated GFR 110; Globulin 4.2 g/dL (2.4-3.5); Glucose 113 mg/dL (70-105); Potassium 5.8 mmol/L (3.5-5.1); Protein, Total 6.4 g/dL (6.0-8.3); Sodium 133 mmol/L (136-145)
[2024-04-05 05:48] LABS: Band 17 % (5-11); Eosinophils 10 % (0-10); Hypochromia SLIGHT = 6-15 cells HPF (0-5); Large Platelets 7.3 % (0-5); Lymphocytes 7 % (21-51); Monocytes 2 % (0-10); Neutrophil 59 % (42-75); Platelet Adequacy Comment Platelets Normal; Polychromasia SLIGHT = 2-3 cells HPF (0-2); Smudge Cells 4.9 %
[2024-04-05] MEDS: Sodium Bicarbonate 75 MEQ in Sodium Chloride 0.45% 1,000 ML IV SCH (11:05)
[2024-04-05] MEDS: LOKELMA 10 GM PACKET PO SCH ×2 (11:05→22:30)
[2024-04-05 21:22] LABS: Anion Gap 10 mmol/L (10-20); BUN (Urea Nitrogen) 21 mg/dL (8.9-20.6); Calc. Creatinine Clearance 160 mL/min (70-130); Carbon Dioxide 21 mmol/L (22-29); Chloride 111 mmol/L (98-107); Estimated GFR 98; Glucose 115 mg/dL (70-105); Potassium 6.3 mmol/L (3.5-5.1); Sodium 136 mmol/L (136-145)
[2024-04-05] MEDS ORDERED: Dextrose 50% Abboject 50 ML SYRINGE SLOW IVP PRN (21:56)
[2024-04-05] MEDS: Insulin Regular 300 UNITS/3 ML VIAL IVP SCH (22:30)
[2024-04-05] MEDS: CALCIUM GLUC 1 GM/NS 50 ML 1 GM in Premix 1 BAG IVPB SCH (22:30)
[2024-04-06 07:10] LABS: Hemoglobin 8.3 g/dL (14.0-18.0); Mean Corpuscular HGB CONC 30.7 g/dL (32.0-36.0); Mean Corpuscular Hemoglobin 26.2 pg (27.0-31.0); Mean Corpuscular Volume 85.2 fL (78.0-98.0); Mean Platelet Volume 10.4 fL (7.4-10.4); Platelet Count 78 10x3/uL (130-400); RBC Distribution Width 17.5 % (11.5-14.5); Red Blood Cell (RBC) Count 3.17 mill/uL (4.70-6.10)
[2024-04-06 07:54] LABS: Anion Gap 10 mmol/L (10-20); BUN (Urea Nitrogen) 19 mg/dL (8.9-20.6); Calc. Creatinine Clearance 192 mL/min (70-130); Calcium 7.8 mg/dL (7.8-10.44); Carbon Dioxide 20 mmol/L (22-29); Chloride 110 mmol/L (98-107); Estimated GFR 110; Glucose 102 mg/dL (70-105); Potassium 5.3 mmol/L (3.5-5.1); Sodium 135 mmol/L (136-145)
[2024-04-06 08:58] LABS: Anisocytosis SLIGHT = 6-15 cells HPF (0-5); Band 5 % (5-11); Eosinophils 1 % (0-10); Large Platelets 7.9 % (0-5); Lymphocytes 10 % (21-51); Macrocytosis SLIGHT = 6-15 cells HPF (0-5); Metamyelocyte 1 % (0-0); Monocytes 5 % (0-10); Neutrophil 74 % (42-75); Platelet Adequacy Comment Platelets Decreased; Polychromasia SLIGHT = 2-3 cells HPF (0-2)
[2024-04-06] MEDS: Furosemide 40 MG (4 mL) VIAL SLOW IVP SCH (10:11)
[2024-04-06] MEDS: LOKELMA 10 GM PACKET PO SCH (12:38)
[2024-04-06 18:59] LABS: Anion Gap 13 mmol/L (10-20); BUN (Urea Nitrogen) 23 mg/dL (8.9-20.6); Calc. Creatinine Clearance 175 mL/min (70-130); Calcium 8.2 mg/dL (7.8-10.44); Carbon Dioxide 21 mmol/L (22-29); Chloride 106 mmol/L (98-107); Estimated GFR 107; Glucose 111 mg/dL (70-105); Potassium 5.2 mmol/L (3.5-5.1); Sodium 135 mmol/L (136-145)
[2024-04-07 08:06] VITALS: TEMP 97.8
[2024-04-07 08:21] LABS: #Basophils Less than 0.03 10x3/uL (0.0-0.2); %Basophils 0.2 % (0.0-1.0); %Eosinophils 3.7 % (0.0-10.0); %Lymphocytes 14.8 % (21.0-51.0); %Monocytes 9.9 % (0.0-10.0); %Neutrophils 70.1 % (42.0-75.0); Hematocrit 26.1 % (42.0-52.0); Mean Corpuscular HGB CONC 30.7 g/dL (32.0-36.0); Mean Corpuscular Hemoglobin 26.9 pg (27.0-31.0); Mean Corpuscular Volume 87.9 fL (78.0-98.0); Mean Platelet Volume 10.5 fL (7.4-10.4); Platelet Count 83 10x3/uL (130-400); Red Blood Cell (RBC) Count 2.97 mill/uL (4.70-6.10)
[2024-04-07 08:38] LABS: Anion Gap 9 mmol/L (10-20); BUN (Urea Nitrogen) 24 mg/dL (8.9-20.6); Calc. Creatinine Clearance 175 mL/min (70-130); Calcium 7.8 mg/dL (7.8-10.44); Carbon Dioxide 22 mmol/L (22-29); Chloride 108 mmol/L (98-107); Estimated GFR 107; Glucose 114 mg/dL (70-105); Potassium 4.7 mmol/L (3.5-5.1); Sodium 134 mmol/L (136-145)
[2024-04-07 11:36] VITALS: BP 106/62
== END 2024-04-07 12:20 | disposition home or self-care (01) | DRG 432 ==
LOC: ERS 13:56 → 2NO 16:16 → T4-B 04-02 15:44
PROVIDERS: ADMIT Internal Medicine; ATTEND Internal Medicine
PROC: 06L38CZ Occlusion of Esophageal Vein with Extraluminal Device, Via Natural or Artificial Opening Endoscopic (ICD-10-PCS; principal; 2024-04-02)
DX: K74.60 Unspecified cirrhosis of liver (principal); I85.01 Esophageal varices with bleeding; K76.7 Hepatorenal syndrome; E87.1 Hypo-osmolality and hyponatremia; K86.1 Other chronic pancreatitis; N17.9 Acute kidney failure, unspecified; N39.0 Urinary tract infection, site not specified; E87.20 Acidosis, unspecified; D62 Acute posthemorrhagic anemia; K21.9 Gastro-esophageal reflux disease without esophagitis; I10 Essential (primary) hypertension; E66.01 Morbid (severe) obesity due to excess calories; M10.9 Gout, unspecified; K52.9 Noninfective gastroenteritis and colitis, unspecified; F17.210 Nicotine dependence, cigarettes, uncomplicated; I95.9 Hypotension, unspecified; D69.6 Thrombocytopenia, unspecified; F10.10 Alcohol abuse, uncomplicated; B96.20 Unspecified Escherichia coli [E. coli] as the cause of diseases classified elsewhere; B96.5 Pseudomonas (aeruginosa) (mallei) (pseudomallei) as the cause of diseases classified elsewhere; Z79.899 Other long term (current) drug therapy
CPT/HCPCS: 36415; 36416; 74174; 80048; 80053; 81001; 82140; 82570; 83605; 83690; 83880; 83930; 83935; 84300; 84484; 85025; 85610; 85730; 86850; 86900; 86901; 86921; 87040; 87077; 87086; 87149; 87186; 93005; 93010; 94760; 96365; 96367; 96368; 96376; C9113; J0613; J0696; J1815; J1940; J2001; J2272; J2354; J2704; J3490; J7050; Q9967

== ENCOUNTER 2024-08-17 14:17 | Inpatient (IN) | payer OTHER ==
[2024-08-17] MEDS ORDERED: Ondansetron PF 4 MG/2 ML Vial ONE (15:01)
[2024-08-17 15:08] LABS: #Basophils Less than 0.03 10x3/uL (0.0-0.2); %Basophils 0.3 % (0.0-1.0); %Eosinophils 1.5 % (0.0-10.0); %Lymphocytes 11.8 % (21.0-51.0); %Monocytes 7.9 % (0.0-10.0); Hemoglobin 6.7 g/dL (14.0-18.0); Mean Corpuscular HGB CONC 31.9 g/dL (32.0-36.0); Mean Corpuscular Hemoglobin 28.9 pg (27.0-31.0); Mean Corpuscular Volume 90.5 fL (78.0-98.0); Mean Platelet Volume 12.1 fL (7.4-10.4); Platelet Count 97 10x3/uL (130-400); RBC Distribution Width 16.6 % (11.5-14.5); Red Blood Cell (RBC) Count 2.32 mill/uL (4.70-6.10)
[2024-08-17 15:20] LABS: ALT (SGPT) 36 U/L (8-55); AST (SGOT) 48 U/L (5-34); Albumin 2.9 g/dL (3.5-5.0); Alkaline Phosphatase 126 U/L (40-110); Anion Gap 12 mmol/L (10-20); BUN (Urea Nitrogen) 60 mg/dL (8.9-20.6); Bilirubin, Total 1.5 mg/dL (0.2-1.2); Calc. Creatinine Clearance 0 mL/min (70-130); Calcium 8.1 mg/dL (7.8-10.44); Carbon Dioxide 22 mmol/L (22-29); Chloride 105 mmol/L (98-107); Estimated GFR 92; Globulin 3.7 g/dL (2.4-3.5); Glucose 115 mg/dL (70-105); Lipase 13 U/L (8-78); Potassium 4.8 mmol/L (3.5-5.1); Protein, Total 6.6 g/dL (6.0-8.3); Sodium 134 mmol/L (136-145)
[2024-08-17 15:46] LABS: INR-International Normal Ratio 1.1; Prothrombin Time 14.3 sec (12.0-14.7)
[2024-08-17 15:47] LABS: PTT 22.8 sec (22.9-36.1)
[2024-08-17] MEDS ORDERED: Thiamine HCl 200 MG/2 ML VIAL ONE (15:47)
[2024-08-17] MEDS ORDERED: cefTRIAXone (ROCEPHIN) 2 GM VIAL ONE (15:48)
[2024-08-17] MEDS ORDERED: Sodium Chloride 0.9% 100 ML ONE (15:48)
[2024-08-17] MEDS ORDERED: Pantoprazole 40 MG VIAL ONE (15:48)
[2024-08-17 15:55] LABS: Acetaminophen Less than 10 mcg/mL (Less than 10); Alcohol Less than 10.0 mg/dL (Less than 10); Salicylate Less than 8.0 mg/dL (Less than 8.0)
[2024-08-17 15:58] LABS: Troponin I 0.012 ng/mL (< 0.028)
[2024-08-17] MEDS ORDERED: Morphine 2 MG/ML VIAL ONE (15:59)
[2024-08-17] MEDS ORDERED: Acetaminophen 325 MG TAB PO PRN (18:09)
[2024-08-17 18:23] LABS: Bacteria/HPF 4+ HPF (None Seen); Bilirubin Negative (Negative); Blood, Urine Negative (Negative); CAUTI Indications for Culture Acute Hematuria; Clarity Clear (Clear); Glucose, Urine (Dipstick) Normal (Negative); Ketone, Urine Negative (Negative); Leukocyte 500 Leu/uL (Negative); Nitrite 1+ (Negative); Protein, Urine (Dipstick) Negative (Neg-Trace); RBC/HPF 0-3 HPF (0-3); Specific Gravity, Urine 1.017 (1.002-1.036); Squamous Epithelial 0-3 HPF (0-3); Urobilinogen Normal mg/dL (Less than 2); WBC/HPF 21-50 HPF (0-3)
[2024-08-17 18:25] LABS: Urine Culture Reflex Yes Yes
[2024-08-17] MEDS: Pantoprazole 40 MG VIAL IVP SCH (19:54)
[2024-08-17] MEDS: Octreotide Acetate 50 MCG/ML AMP SLOW IVP SCH (19:54)
[2024-08-17] MEDS: Nicotine 21 MG PATCH TD SCH (19:55)
[2024-08-17] MEDS: Sodium Chloride 0.9% 1,000 ML IV SCH (19:55)
[2024-08-17] MEDS: Ondansetron PF 4 MG/2 ML Vial IVP PRN (20:04)
[2024-08-17] MEDS: Octreotide Acetate 1,250 MCG in Sodium Chloride 0.9% 250 ML 250 ML IVPB SCH (21:47)
[2024-08-18 00:54] LABS: Hematocrit 22.7 % (42.0-52.0); Hemoglobin 7.4 g/dL (14.0-18.0); Platelet Count 99 10x3/uL (130-400)
[2024-08-18 03:16] LABS: #Basophils Less than 0.03 10x3/uL (0.0-0.2); %Basophils 0.4 % (0.0-1.0); %Eosinophils 2.9 % (0.0-10.0); %Lymphocytes 13.8 % (21.0-51.0); %Monocytes 10.6 % (0.0-10.0); %Neutrophils 71.9 % (42.0-75.0); Hematocrit 22.3 % (42.0-52.0); Hemoglobin 7.1 g/dL (14.0-18.0); Mean Corpuscular HGB CONC 31.8 g/dL (32.0-36.0); Mean Corpuscular Hemoglobin 29.1 pg (27.0-31.0); Mean Corpuscular Volume 91.4 fL (78.0-98.0); Mean Platelet Volume 10.8 fL (7.4-10.4); Platelet Count 98 10x3/uL (130-400); RBC Distribution Width 16.2 % (11.5-14.5); Red Blood Cell (RBC) Count 2.44 mill/uL (4.70-6.10)
[2024-08-18 03:52] LABS: Anion Gap 12 mmol/L (10-20); BUN (Urea Nitrogen) 51 mg/dL (8.9-20.6); Calc. Creatinine Clearance 144 mL/min (70-130); Calcium 7.8 mg/dL (7.8-10.44); Carbon Dioxide 18 mmol/L (22-29); Chloride 111 mmol/L (98-107); Estimated GFR 85; Glucose 122 mg/dL (70-105); Potassium 4.7 mmol/L (3.5-5.1); Sodium 136 mmol/L (136-145)
[2024-08-18] MEDS ORDERED: Lorazepam 2 MG/ML VIAL IM PRN (08:22)
[2024-08-18] MEDS: Folic Acid 1 MG TAB PO SCH (09:29)
[2024-08-18] MEDS: Thiamine HCl 200 MG/2 ML VIAL SLOW IVP SCH (09:29)
[2024-08-18] MEDS: Multivit, Therapeutic 1 TAB PO SCH (09:29)
[2024-08-18] MEDS ORDERED: PROPOFOL 20 ML ONE ×2 (10:00→10:46)
[2024-08-18] MEDS ORDERED: fentaNYL 50 mcg/mL 1 mL Vial ONE ×3 (11:02→11:21)
[2024-08-18 11:43] LABS: Hematocrit 21.8 % (42.0-52.0)
[2024-08-18 13:13] LABS: Platelet Adequacy Comment Platelets Decreased; Polychromasia SLIGHT = 2-3 cells HPF (0-2)
[2024-08-18 14:20] LABS: Hematocrit 22.4 % (42.0-52.0); Mean Corpuscular HGB CONC 31.3 g/dL (32.0-36.0); Mean Corpuscular Volume 96.1 fL (78.0-98.0); Mean Platelet Volume 11.4 fL (7.4-10.4); Platelet Count 91 10x3/uL (130-400); RBC Distribution Width 17.2 % (11.5-14.5); Red Blood Cell (RBC) Count 2.33 mill/uL (4.70-6.10)
[2024-08-18 14:42] LABS: Anisocytosis SLIGHT = 6-15 cells HPF (0-5); Band 5 % (5-11); Eosinophils 1 % (0-10); Lymphocytes 3 % (21-51); Macrocytosis SLIGHT = 6-15 cells HPF (0-5); Monocytes 2 % (0-10); Neutrophil 89 % (42-75)
[2024-08-18] MEDS: cefTRIAXone\\ROCEPHIN 1 GM in Sodium Chloride 0.9% 100 ML IVPB SCH (17:59)
[2024-08-18] MEDS: Propranolol 10 MG TAB PO SCH (21:40)
[2024-08-18 21:52] LABS: #Basophils Less than 0.03 10x3/uL (0.0-0.2); %Basophils 0.4 % (0.0-1.0); %Eosinophils 4.6 % (0.0-10.0); %Lymphocytes 11.1 % (21.0-51.0); %Monocytes 9.7 % (0.0-10.0); %Neutrophils 73.2 % (42.0-75.0); Hematocrit 23.9 % (42.0-52.0); Hemoglobin 7.7 g/dL (14.0-18.0); Mean Corpuscular HGB CONC 32.2 g/dL (32.0-36.0); Mean Corpuscular Hemoglobin 29.7 pg (27.0-31.0); Mean Corpuscular Volume 92.3 fL (78.0-98.0); Mean Platelet Volume 10.6 fL (7.4-10.4); Platelet Count 85 10x3/uL (130-400); RBC Distribution Width 16.7 % (11.5-14.5); Red Blood Cell (RBC) Count 2.59 mill/uL (4.70-6.10)
[2024-08-19] MEDS: Lorazepam 1 MG TAB PO PRN (03:50)
[2024-08-19 06:27] LABS: #Basophils 0.03 10x3/uL (0.0-0.2); %Basophils 0.6 % (0.0-1.0); %Eosinophils 5.1 % (0.0-10.0); %Lymphocytes 13.2 % (21.0-51.0); %Monocytes 10.3 % (0.0-10.0); %Neutrophils 70.1 % (42.0-75.0); Hematocrit 27.2 % (42.0-52.0); Hemoglobin 8.7 g/dL (14.0-18.0); Mean Corpuscular Hemoglobin 29.3 pg (27.0-31.0); Mean Corpuscular Volume 91.6 fL (78.0-98.0); Mean Platelet Volume 10.7 fL (7.4-10.4); Platelet Count 101 10x3/uL (130-400); Red Blood Cell (RBC) Count 2.97 mill/uL (4.70-6.10)
[2024-08-19 06:31] LABS: INR-International Normal Ratio 1.3; Prothrombin Time 15.7 sec (12.0-14.7)
[2024-08-19 06:42] LABS: ALT (SGPT) 39 U/L (8-55); AST (SGOT) 43 U/L (5-34); Albumin 2.8 g/dL (3.5-5.0); Alkaline Phosphatase 105 U/L (40-110); Anion Gap 9 mmol/L (10-20); BUN (Urea Nitrogen) 24 mg/dL (8.9-20.6); Bilirubin, Total 2.7 mg/dL (0.2-1.2); Calc. Creatinine Clearance 179 mL/min (70-130); Carbon Dioxide 20 mmol/L (22-29); Chloride 109 mmol/L (98-107); Estimated GFR 108; Globulin 3.5 g/dL (2.4-3.5); Glucose 123 mg/dL (70-105); Potassium 4.7 mmol/L (3.5-5.1); Protein, Total 6.3 g/dL (6.0-8.3); Sodium 133 mmol/L (136-145)
[2024-08-19] MEDS ORDERED: Lorazepam 1 MG TAB PO PRN (08:22)
[2024-08-19] MEDS: LevoFLOXacin 750 MG TAB PO SCH (11:21)
[2024-08-19] MEDS: Methyl Salicylate/Menthol 85 GM TUBE TOP PRN (22:59)
[2024-08-20 03:49] LABS: Hematocrit 27.7 % (42.0-52.0); Hemoglobin 8.9 g/dL (14.0-18.0); Mean Corpuscular HGB CONC 32.1 g/dL (32.0-36.0); Mean Corpuscular Hemoglobin 29.6 pg (27.0-31.0); Mean Platelet Volume 10.4 fL (7.4-10.4); Platelet Count 106 10x3/uL (130-400); RBC Distribution Width 17.5 % (11.5-14.5); Red Blood Cell (RBC) Count 3.01 mill/uL (4.70-6.10)
[2024-08-20 04:23] LABS: Anion Gap 11 mmol/L (10-20); BUN (Urea Nitrogen) 16 mg/dL (8.9-20.6); Calc. Creatinine Clearance 167 mL/min (70-130); Calcium 8.1 mg/dL (7.8-10.44); Carbon Dioxide 20 mmol/L (22-29); Chloride 109 mmol/L (98-107); Estimated GFR 103; Glucose 113 mg/dL (70-105); Potassium 4.5 mmol/L (3.5-5.1); Sodium 135 mmol/L (136-145)
[2024-08-21 03:50] LABS: Hematocrit 25.7 % (42.0-52.0); Hemoglobin 8.3 g/dL (14.0-18.0); Mean Corpuscular HGB CONC 32.3 g/dL (32.0-36.0); Mean Corpuscular Hemoglobin 30.4 pg (27.0-31.0); Mean Corpuscular Volume 94.1 fL (78.0-98.0); Mean Platelet Volume 10.5 fL (7.4-10.4); Platelet Count 102 10x3/uL (130-400); RBC Distribution Width 17.6 % (11.5-14.5); Red Blood Cell (RBC) Count 2.73 mill/uL (4.70-6.10)
[2024-08-21 04:22] LABS: Anion Gap 10 mmol/L (10-20); BUN (Urea Nitrogen) 14 mg/dL (8.9-20.6); Calc. Creatinine Clearance 163 mL/min (70-130); Calcium 7.9 mg/dL (7.8-10.44); Carbon Dioxide 21 mmol/L (22-29); Chloride 109 mmol/L (98-107); Estimated GFR 101; Glucose 120 mg/dL (70-105); Potassium 4.7 mmol/L (3.5-5.1); Sodium 135 mmol/L (136-145)
[2024-08-21 06:10] VITALS: BMI 43.1
[2024-08-21] MEDS ORDERED: Lorazepam 0.5 MG TAB PO PRN (08:22)
[2024-08-21] MEDS: Thiamine 100 MG TAB PO SCH (10:07)
[2024-08-21 11:45] VITALS: BP 102/61; TEMP 99.2
== END 2024-08-21 12:20 | disposition home or self-care (01) | DRG 432 ==
LOC: ERS 14:17 → IMCU/EMU 17:37 → PCU 08-18 23:47
PROVIDERS: ADMIT Internal Medicine; ATTEND Internal Medicine
PROC: 30233N1 Transfusion of Nonautologous Red Blood Cells into Peripheral Vein, Percutaneous Approach (ICD-10-PCS; 2024-08-17)
PROC: 06L38CZ Occlusion of Esophageal Vein with Extraluminal Device, Via Natural or Artificial Opening Endoscopic (ICD-10-PCS; principal; 2024-08-18)
DX: K70.31 Alcoholic cirrhosis of liver with ascites (principal); I85.11 Secondary esophageal varices with bleeding; D62 Acute posthemorrhagic anemia; K76.6 Portal hypertension; E87.1 Hypo-osmolality and hyponatremia; N39.0 Urinary tract infection, site not specified; F10.20 Alcohol dependence, uncomplicated; K31.89 Other diseases of stomach and duodenum; Z79.899 Other long term (current) drug therapy; M10.9 Gout, unspecified; I10 Essential (primary) hypertension; Z87.891 Personal history of nicotine dependence
CPT/HCPCS: 36415; 36430; 74177; 80048; 80053; 80307; 81001; 82105; 83690; 83735; 84484; 85025; 85027; 85610; 85730; 86850; 86900; 86901; 87040; 87077; 87086; 87186; 93005; 96361; 96365; 96367; 96375; J0696; J0780; J2272; J2354; J2405; J2470; J2704; J3010; J3411; J7030; J7050; P9016; Q9967